=== PATIENT | female | born 1985 | race Caucasian/White ===

== ENCOUNTER → 2018-02-18 07:10 | Outpatient (CLI) | payer OTHER, MEDICAID, SELFPAY ==
[2018-02-18 10:47] LABS: Anion Gap 5 (5-15); BUN 11 mg/dL (7-18); BUN/Creat Ratio 13.7 RATIO (10-20); Calcium,Total 8.5 mg/dL (8.5-10.1); Chloride 108 mmol/L (98-107); Cholesterol 189 mg/dL (200); EST Glomerular Filtration Rate 88 mL/min (>60); Est Glom Filt Rate - Afr Amer 106 mL/min (>60); Glucose 88 mg/dL (74-106); High Density Lipoprotein 33 mg/dL; Potassium 3.5 mmol/L (3.5-5.1); Sodium Level 141 mmol/L (136-145); Triglycerides 161 mg/dL; Very Low Density Lipoprotein 32 mg/dL (5-40)
== END ==
PROVIDERS: Family Provider Family Medicine; PCP Family Medicine; Referring Provider Family Medicine; Visit Provider Family Medicine
DX: K58.9 Irritable bowel syndrome, unspecified (principal)
CPT/HCPCS: 36415; 80048; 80061

== ENCOUNTER → 2018-05-26 14:14 | Outpatient (CLI) | payer OTHER, MEDICAID, SELFPAY ==
[2018-05-26 09:16] VITALS: BMI 33.1
== END ==
PROVIDERS: Family Provider Family Medicine; PCP Family Medicine; Referring Provider Physician Assistant; Visit Provider Physician Assistant
DX: J02.9 Acute pharyngitis, unspecified (principal)
CPT/HCPCS: 87081

== ENCOUNTER → 2019-05-11 07:46 | Outpatient (CLI) | payer OTHER, MEDICAID, SELFPAY ==
[2019-04-24 13:43] VITALS: BMI 34.7
[2019-05-11 09:41] LABS: Anion Gap 4 (5-15); BUN 9 mg/dL (7-18); BUN/Creat Ratio 10.2 RATIO (10-20); Calcium,Total 8.9 mg/dL (8.5-10.1); Chloride 109 mmol/L (98-107); Cholesterol 191 mg/dL (200); Creatinine, Serum 0.88 mg/dL (0.55-1.02); EST Glomerular Filtration Rate 78 mL/min (>60); Est Glom Filt Rate - Afr Amer 94 mL/min (>60); Glucose 92 mg/dL (74-106); High Density Lipoprotein 36 mg/dL; Potassium 3.9 mmol/L (3.5-5.1); Sodium Level 141 mmol/L (136-145); Triglycerides 117 mg/dL; Very Low Density Lipoprotein 23 mg/dL (5-40)
[2019-05-11 10:13] LABS: Vitamin D,25 Hydroxy 15.5 ng/mL (29.95-100.01)
== END ==
PROVIDERS: PCP Family Medicine; Referring Provider Family Medicine; Visit Provider Family Medicine
DX: Z00.00 Encounter for general adult medical examination without abnormal findings (principal); E66.9 Obesity, unspecified
CPT/HCPCS: 36415; 80048; 80061; 82306

== ENCOUNTER → 2019-07-04 09:00 | Outpatient (CLI) | payer OTHER, SELFPAY ==
[2019-04-24 13:43] VITALS: BMI 34.7
== END ==
PROVIDERS: PCP Family Medicine; Referring Provider Nurse Practitioner Acute Care; Visit Provider Nurse Practitioner Acute Care
DX: G47.33 Obstructive sleep apnea (adult) (pediatric) (principal)
CPT/HCPCS: 98960; G0463

== ENCOUNTER → 2020-02-19 11:33 | Outpatient (CLI) | payer OTHER, SELFPAY ==
[2019-10-30 10:02] VITALS: BMI 33.3
--- NOTE | 2020-02-19 11:36 | VDLE_ITS ---
Reason For Study: Calf pain RIGHT GSV is normal. CFV is compressible, spontaneous, phasic, competent and demonstrates normal augmentation. FV is compressible, spontaneous, phasic, competent and demonstrates normal augmentation. POP V is compressible, spontaneous, phasic, competent and demonstrates normal augmentation. T/P Trunk is compressible. PTV is compressible. RT PerV is compressible. Procedure This is a venous duplex using B-mode, color flow and spectral Doppler. Exam performed in department. A preliminary report was called and/or faxed to [facility]. Interpretation Summary Deep veins of the right lower extremity are patent and compressible segmentally. There is no evidence of right lower extremity deep vein thrombosis. Valvular competence appears intact within the proximal deep venous system on the right . The right great saphenous vein appears patent and compressible segmentally. Ordering Physician: Lawson Contreras Referring Physician: Lawson Contreras Performed By: Wendy Bullock RVT
== END ==
PROVIDERS: PCP Family Medicine; Referring Provider Family Medicine; Visit Provider Family Medicine
DX: M79.661 Pain in right lower leg (principal)
CPT/HCPCS: 93971

== ENCOUNTER → 2020-09-12 11:32 | Outpatient (CLI) | payer OTHER, SELFPAY ==
[2019-10-30 10:02] VITALS: BMI 33.3
== END ==
PROVIDERS: PCP Family Medicine; Referring Provider Nurse Practitioner Acute Care; Visit Provider Nurse Practitioner Acute Care
DX: Z01.84 Encounter for antibody response examination (principal)
CPT/HCPCS: 36415; 86769

== ENCOUNTER → 2020-12-04 | Outpatient (CLI) | payer OTHER, SELFPAY ==
[2020-12-04 10:11] VITALS: BMI 33.7
[2020-12-04 16:49] LABS: Absolute Lymphocyte Count 2.32 X10^3/uL (0.83-4.51); Absolute Neutrophil Count 5.5 X10^3/uL (2.0-7.7); Basophil# 0.05 X10^3/uL; Basophil% 0.6 % (0-1); Eosinophil# 0.28 X10^3/uL; Eosinophils% 3.2 % (0-5); Hematocrit 42.9 % (37-47); Lymphocyte # 2.32 X10^3/ul (0.83-4.51); Lymphocyte % 26.6 % (19-41); Mean Corp Hgb Conc 32.6 g/dL (32-36); Mean Corpuscular Hgb 31.2 pg (27.0-32.0); Mean Corpuscular Volume 95.5 fL (81-99); Monocyte# 0.59 X10^3/uL; Monocyte% 6.8 % (0-10); NRBC Flagged by Analyzer 0 % (0-5); Neutrophil # 5.46 X10^3/uL (2.7-7.7); Neutrophil % 62.5 % (47-70); Platelet Count 335 K/mm3 (150-450); RBC Distribution Width CV 11.9 % (11.6-14.6); RBC Distribution Width SD 41.6 fl (35.1-43.9); Red Blood Count 4.49 M/mm3 (4.2-5.4); White Blood Count 8.7 K/mm3 (4.4-11.0)
[2020-12-04 17:02] LABS: ALB/GLOB Ratio 1.2 RATIO (0.9-2.4); AST(SGOT) 15 U/L (15-37); Alanine Aminotransfer ALT/SGPT 25 U/L (13-56); Alkaline Phosphatase 49 U/L (45-117); Anion Gap 5 (5-15); BUN 15 mg/dL (7-18); BUN/Creat Ratio 21.9 RATIO (10-20); Calcium,Total 8.5 mg/dL (8.5-10.1); Chloride 108 mmol/L (98-107); Cholesterol 197 mg/dL (200); Creatinine, Serum 0.68 mg/dL (0.55-1.02); EST Glomerular Filtration Rate 103 mL/min (>60); Est Glom Filt Rate - Afr Amer 125 mL/min (>60); Globulin 3.4 g/dL (2.2-4.2); Glucose 90 mg/dL (74-106); High Density Lipoprotein 33 mg/dL; Protein, Total 7.4 g/dL (6.4-8.2); Sodium Level 141 mmol/L (136-145); Triglycerides 293 mg/dL; Very Low Density Lipoprotein 59 mg/dL (5-40)
[2020-12-04 17:04] LABS: Vitamin D,25 Hydroxy 33.6 ng/mL
[2020-12-06 22:14] LABS: HPV APTIMA, High Risk Negative (Negative)
== END | disposition home or self-care (01) ==
PROVIDERS: PCP Internal Medicine; Referring Provider Nurse Practitioner Women's Health; Visit Provider Nurse Practitioner Women's Health
DX: Z12.4 Encounter for screening for malignant neoplasm of cervix (principal); E66.9 Obesity, unspecified; E55.9 Vitamin D deficiency, unspecified; R03.0 Elevated blood-pressure reading, without diagnosis of hypertension
CPT/HCPCS: 36415; 80053; 80061; 82306; 85025; 87624; 88175; G0145

== ENCOUNTER 2021-08-01 08:36 | Outpatient (CLI) | payer OTHER, SELFPAY ==
[2021-08-01 08:51] LABS: Absolute Lymphocyte Count 1.65 X10^3/uL (0.83-4.51); Basophil# 0.03 X10^3/uL; Basophil% 0.4 % (0-1); Eosinophil# 0.19 X10^3/uL; Eosinophils% 2.6 % (0-5); Hematocrit 43.1 % (37-47); Hemoglobin 14.5 g/dL (12.0-15.0); Lymphocyte # 1.65 X10^3/ul (0.83-4.51); Lymphocyte % 22.4 % (19-41); Mean Corp Hgb Conc 33.6 g/dL (32-36); Mean Corpuscular Hgb 31.6 pg (27.0-32.0); Mean Corpuscular Volume 93.9 fL (81-99); Mean Platelet Vol. 9.2 fl (6.2-12.0); Monocyte# 0.49 X10^3/uL; Monocyte% 6.6 % (0-10); NRBC Flagged by Analyzer 0 % (0-5); Neutrophil # 4.99 X10^3/uL (2.7-7.7); Neutrophil % 67.6 % (47-70); Platelet Count 319 K/mm3 (150-450); RBC Distribution Width CV 11.9 % (11.6-14.6); RBC Distribution Width SD 41.3 fl (35.1-43.9); Red Blood Count 4.59 M/mm3 (4.2-5.4); White Blood Count 7.4 K/mm3 (4.4-11.0)
[2021-08-01 08:56] LABS: Erythrocyte Sedimentation Rate 9 mm/hr (0-30)
[2021-08-01 09:36] LABS: ALB/GLOB Ratio 1.2 RATIO (0.9-2.4); AST(SGOT) 13 U/L (15-37); Alanine Aminotransfer ALT/SGPT 21 U/L (13-56); Alkaline Phosphatase 52 U/L (45-117); Anion Gap 2 (5-15); BUN 10 mg/dL (7-18); BUN/Creat Ratio 11.8 RATIO (10-20); Bilirubin, Direct 0.11 mg/dL (0.00-0.30); CRP 2.91 mg/L (0.0-3.0); Calcium,Total 8.4 mg/dL (8.5-10.1); Chloride 108 mmol/L (98-107); Creatinine, Serum 0.85 mg/dL (0.55-1.02); EST Glomerular Filtration Rate 81 mL/min (>60); Est Glom Filt Rate - Afr Amer 97 mL/min (>60); Globulin 3.3 g/dL (2.2-4.2); Glucose 109 mg/dL (74-106); Potassium 3.8 mmol/L (3.5-5.1); Protein, Total 7.3 g/dL (6.4-8.2); Sodium Level 139 mmol/L (136-145); Thyroid Stim Hormone (TSH) 1.01 uIU/mL (0.358-3.74)
[2021-08-05 12:00] LABS: Anti-Centromere B Ab <0.2 AI (0.0-0.9); Anti-Chromatin <0.2 AI (0.0-0.9); Anti-Jo <0.2 AI (0.0-0.9); Anti-Scleroderma-70 AB <0.2 AI (0.0-0.9); Endomysial Antibody IgA Negative (Negative); RNP Ab 0.5 AI (0.0-0.9); SJOGREN'S Anti-SS-A test < 0.2 AI (0.0-0.9); SJOGREN'S Anti-SS-B test < 0.2 AI (0.0-0.9); Smith Ab <0.2 AI (0.0-0.9)
[2021-08-05 13:46] LABS: Immunoglobulin A 235 mg/dL (87-352); t-Transglutaminase IgA <2 U/mL (0-3)
[2021-08-05 17:00] LABS: Anti-dsDNA Ab <1 IU/mL (0-9)
== END 2021-08-01 23:59 | disposition home or self-care (01) ==
PROVIDERS: PCP Internal Medicine; Referring Provider Nurse Practitioner Adult Health; Visit Provider Nurse Practitioner Adult Health
DX: K59.09 Other constipation (principal)
CPT/HCPCS: 36415; 80053; 82248; 82784; 83516; 84443; 85025; 85652; 86140; 86225; 86235; 86255

== ENCOUNTER 2021-08-04 08:47 | Outpatient (CLI) | payer OTHER, SELFPAY ==
--- NOTE | 2021-08-04 09:00 | RAD_ITS ---
STUDY: X-RAY - ABDOMEN/PELVIS REASON FOR EXAM: Female, 35 years old. Constipation, sitz marker study day 3 TECHNIQUE: Single AP view of the abdomen / pelvis. COMPARISON: Comparison is made with prior examination dated 01/23/2016. FINDINGS: Normal visualized lung bases. There is a moderate amount of colonic fecal material. The visualized liver, spleen and kidneys are grossly normal in size and morphology. 92 the seen in the pelvis. No Sitz markers are seen. Normal visualized osseous structures. RAD/Abdomen Single View IMPRESSION: No Sitz markers are seen. Electronically Signed: Johnson Rondon MD at 15:31 EDT ,
== END 2021-08-04 23:59 | disposition home or self-care (01) ==
LOC: RAD 08:49
PROVIDERS: PCP Internal Medicine; Referring Provider Nurse Practitioner Adult Health; Visit Provider Nurse Practitioner Adult Health
DX: K59.09 Other constipation (principal)
CPT/HCPCS: 74018

== ENCOUNTER → 2021-08-12 | Outpatient (CLI) | payer OTHER, SELFPAY ==
--- NOTE | 2021-08-12 06:54 | CT_ITS ---
STUDY: CT ABDOMEN AND PELVIS WITH CONTRAST REASON FOR EXAM: Female, 35 years old. abd pain, constipation RADIATION DOSAGE (If Supplied By Facility): CTDIvol = ( 16.1 ) mGy, DLP = ( 1226.97 ) mGycm TECHNIQUE: Transaxial images were obtained from the dome of the diaphragm to the symphysis pubis without oral contrast. Oral and amp; IV Readi-CAT and amp; 100mL Isovue-300 was administered. Sagittal and coronal images were reconstructed. Individualized dose optimization techniques were used for this CT. COMPARISON: None. FINDINGS: The visualized lung bases are unremarkable. The visualized portions of the heart are within normal limits. Normal liver. Normal gallbladder and extrahepatic biliary system. Normal spleen. Normal pancreas. Normal bilateral adrenal glands. Normal right kidney. There is a 4 mm nonobstructing left renal calculus. Normal visualized stomach. Normal small intestine. There is extensive fecal material in the colon consistent with constipation.. The appendix is visualized and appears normal. Normal abdominal aorta. Normal inferior vena cava. Normal retroperitoneum. Normal urinary bladder. Pelvis: There is an IUD in the uterus. There is a left ovarian cyst measuring 1.78 cm. Normal abdominal wall. Normal osseous structures. CT/Abdomen/Pelvis WITH Contrast IMPRESSION: There are findings consistent with constipation. There is an IUD in the uterus There is a small left ovarian cyst. There is a nonobstructing stone in the left kidney. Electronically Signed: Cory Matta MD at 7:39 EDT ,
== END | disposition home or self-care (01) ==
LOC: CT 06:53
PROVIDERS: PCP Internal Medicine; Referring Provider Nurse Practitioner Adult Health; Visit Provider Nurse Practitioner Adult Health
DX: R10.9 Unspecified abdominal pain (principal); K59.09 Other constipation
CPT/HCPCS: 74177; Q9967

== ENCOUNTER 2021-10-30 08:08 | Day surgery (SDC) | payer OTHER, SELFPAY ==
--- NOTE | 2021-10-30 | EGD_PTH ---
PATIENT: MARGE ÁLVAREZ LOC: EN U#:[id number] AGE/SX: 35/F ROOM: RE10/30/[address]: Dr. Soto Case DO : 1985 BED: DIS: 10/30/2021 SPEC #: [id number] RECD: 10/30/21 11:05 STATUS: ZAK KILO #: [id number] IRLANDA: 10/30/21 00:[address]: Soto Case DEPT: SURGICAL PATHOLOGY RECD BY: Haja Sapp ENTERED: 10/30/21 11:06 SP TYPE: EGD BIOPSY OT DR: Dr. Caroline Matamoros MD Tissues: A - Duodenum, NOS B - Gastric mucous membrane C - Esophageal mucous membrane D - Ileum, NOS Procedures: Special Stain Group II Surgery Specimen Level IV Alcian Blue/PAS (control) HEADER OPERATION: Colonoscopy, EGD [place] [place] with biopsies PRE-OP DIAGNOSIS: Chronic constipation, abdominal pain TISSUE SUBMITTED: A ? Duodenum biopsy, B ? Antrum biopsy for H. pylori and path, C ? Distal esophagus biopsy, D ? Terminal ileum biopsy MICROSCOPIC DIAGNOSIS A. Duodenum, biopsy: Fragments of duodenal mucosa, no pathologic diagnosis. B. Antrum, biopsy: Mild gastritis. See microscopic description and comment. C. Distal esophagus, biopsy: Fragments of gastric mucosa with chronic inflammation. Intestinal metaplasia (goblet cell metaplasia) not identified. See comment. D. Terminal ileum, biopsy: Fragments of small intestinal mucosa, no pathologic diagnosis. SJ:dread 10/31/2021 COMMENT B. The results of immunohistochemistry for Helicobacter pylori will be reported separately ([id number]). C. Alcian blue/PAS stain with matched control is used in the evaluation of the specimen. MICROSCOPIC DESCRIPTION Slides are reviewed. B. The specimen shows fragments of gastric mucosa with chronic inflammatory cell infiltrates in the lamina propria consisting of lymphocytes and plasma cells, consistent with mild chronic gastritis. GROSS DESCRIPTION A - Received in fixative is one container labeled with the patient's name and designated duodenum. The specimen consists of two irregular fragments of light fair soft tissue that in aggregate measure 0.8 x 0.4 x 0.1 cm. The specimen is totally submitted in one cassette. B - Received in fixative is one container labeled with the patient's name and designated antrum. The specimen consists of multiple irregular fragments of light fair soft tissue that in aggregate measure 1 x 0.4 x 0.1 cm. The specimen is totally submitted in one cassette. C - Received in fixative is one container labeled with the patient's name and designated distal esophagus biopsy. The specimen consists of two irregular fragments of light fair soft tissue that in aggregate measure 0.8 x 0.4 x 0.1 cm. The specimen is totally submitted in one cassette. D - Received in fixative is one container labeled with the patient's name and designated terminal ileum. The specimen consists of multiple irregular fragments of light fair soft tissue that in aggregate measure 1.5 x 0.5 x 0.1 cm. The specimen is totally submitted in one cassette. / SJ:rg 10/30/2021 TC:3 CPT: 65212 x4, 06200
--- NOTE | 2021-10-30 08:15 | PCM.HP.BLA ---
History and Physical Date of Admission: 10/30/21 MARGE LEIGH, is a 35 F who presents to the office today for 15 yrs of constipation, since of her second child, has BM usually once or maybe twice a week. Sometimes has to strain, but that's not really successful. Never feels like bowels fully evacuate. Sometimes gets urge to have a BM but then nothing happens. Stool almost always soft, even when constipated. Then occasionally gets periods of soft, frequent stool that passes even when she just goes to the toilet to urinate. Occas severe sharp pains in LUQ >RUQ, typically after dairy, she usually uses Lactaid. No nausea or vomiting. No hematochezia or melena. Tried and failed miralax. Hasn't used dulcolax, enema, senna. Used stool softener briefly after her son was born. Previously took amitriptyline for abd pain, maybe helped. Recently started omeprazole, not sure if it is helping, but taking it at night. No heartburn. Hard to swallow big pills or a big bite of food, this started 8-12 mos ago. Gets epigastric pain and fullness after eating, having early satiety, can have firmness of upper abd. Even gets SOB because she is so full and bloated. Mother and nephew have Crohn's disease Frustrated by weight gain in past 6-7 years Comorbidities include obesity, NORMA, RLS ROS Const Constitutional: No fatigue ENT ENT: Positive for nasal congestion Gastro GI: Positive for abdominal pain, bloating, constipation and excessive flatus; No belching, change in bowel habits, change in stool character, coffee ground emesis, cramping, diarrhea, heartburn, feeling full early, incontinent of stools, Vomiting blood/hematemesis, Blood in stool, loose stools, Black,tarry stools, nausea/dyspepsia, pain with swallowing, vomiting or other Musc Musculoskeletal: Positive for back pain, restless legs and leg pain at night; No joint pain Skin Skin: Positive for dry skin; No yellowing of the eye or itchy eyes Neuro Neurology: Positive for restless legs Psych Psychiatric: No anxiety and No depression Endo Endocrine: No fatigue Aller/Imm Allergy/Immunologic: No itchy eyes Beka/Lymp Hematologic/Lymphatic: Positive for easy bruising; No easy bleeding Exam Const General: cooperative, no acute distress, well developed and well groomed Eyes Conjunctivae: conjunctivae normal Sclera: sclerae normal Resp Effort & Inspection: normal respiratory effort GI Inspection: obesity Palpation: soft and nontender Quality Reporting Tobacco Screening ([facility] 138) Smoking Status: Former smoker Assessment and Plan Assessment and Plan (1) Chronic constipation: ?Status:?Chronic (2) Abdominal pain: ?Status:?Acute ? ? ? Orders:?Orders: ? Abdomen Single View Today K59.09 ? ? Abdomen Single View Today K59.09 ? ? Comprehensive Metabolic Profil Today K59.09 ? ? CRP Today K59.09 ? ? Liver Profile Today K59.09 ? ? Thyroid Stim Hormone (TSH) Today K59.09 ? ? CBC W/Diff, Automated Today K59.09 ? ? Erythrocyte Sed Rate Today K59.09 ? ? Celiac Disease Profile Today K59.09 ? ? Abdomen/Pelvis WITH Contrast Today K59.09, R10.9 ?Plan - Nelia Giordano PORTABLE TRACK CREW CHIEF, PORTABLE TRACK CREW CHIEF-C: 35 yr old female with chronic constipation with abd pain, epigastric pain with early satiety, possible GERD, FH Crohn's. DDx includes esophagitis, esophageal stricture, Alejandre's, gastritis, duodenitis, ulcer, gastroparesis, CIC, IBS-C, slow transit constipation vs pelvic floor. Biochemical w/u including inflammatory markers Sitz marker study EGD and colonoscopy Once results are back, will likely rx linzess or similar for IBS-C, f/u in 6 wks and then 2 wks after endoscopy I have re-examined the patient. There are no clinical changes since date of exam.
[2021-10-30 08:34] VITALS: BP 116/77; PULSE 75; RESP 16; TEMP 36.1; O2SAT 99; BMI 33.3
[2021-10-30] MEDS: Lactated Ringers 1,000 ML 15 ML IV (08:53)
[2021-10-30 08:56] LABS: Internal QC Validated? YES +Cl - CLEAR BKGD; Pregnancy, Urine Negative Negative
--- NOTE | 2021-10-30 09:15 | IMM_PTH ---
PATIENT: MARGE ÁLVAREZ LOC: EN U#:[id number] AGE/SX: 35/F ROOM: RE10/30/[address]: Dr. Soto Case DO : 1985 BED: DIS: 10/30/2021 SPEC #: [id number] RECD: 10/30/21 13:36 STATUS: ZAK REQ #: [id number] IRLANDA: 10/30/21 09:[address]: Soto Case DEPT: IMMUNOHISTOCHEMISTRY RECD BY: Carmencita Philip ENTERED: 10/30/21 13:36 SP TYPE: IMMUNO OTHR DR: Dr. Caroline Matamoros MD Tissues: B - Stomach, NOS Procedures: H Pylori (initial) PHYSICIAN & INSTITUTION [place] [id number] SPECIMEN INFORMATION: Tissue Source: B ? Antrum biopsy Clinical Info: Chronic constipation, abdominal pain Specimen Number: [id number] CPT code: 12963 METHODOLOGY: Deparaffinized sections of prefer/formalin-fixed tissue or PAP/DQ stained slides are incubated with monoclonal/polyclonal antibodies/oligonucleotide probes. Localization is made via biotin free immunoperoxidase method. Appropriate controls are performed and reacted as expected. Results on target cell population are indicated in the following table: RESULTS: ANTIBODY / CLONE RESULT Block B H Pylori (polyclonal) negative These tests were developed and their performance characteristics determined by [facility]. They may not have been cleared or approved by the U.S. Food and Drug Administration. The FDA has determined that such clearance or approval is not necessary. The above immunohistochemical/dualISH markers are ordered and reviewed by the Pathologist. INTERPRETATION: B. Antrum, biopsy: Negative for Helicobacter pylori organisms. SJ:dread 10/31/2021
[2021-10-30 09:35] VITALS: BP 105/61; BP 116/77; PULSE 94; RESP 16; TEMP 36.2; O2SAT 96
[2021-10-30 09:40] VITALS: BP 114/73; BP 116/77; PULSE 86; RESP 16; O2SAT 98
--- NOTE | 2021-10-30 09:41 | OP.EGD_ITS ---
Patient Name: Addis Moyer Procedure Date: 10/30/2021 8:50 AM Date of : 1985 Age: 35 Procedure: Upper GI endoscopy Indications: Epigastric abdominal pain Providers: Soto Case DO Referring MD: Caroline Matamoros MD Medicines: Monitored Anesthesia Care Patient Profile: This is a 35 year old female. Refer to note in patient chart for documentation of history and physical. Patient has symptoms of chronic epigastric abdominal pain. Complications: No immediate complications. Procedure: Pre-Anesthesia Assessment: - Prior to the procedure, a History and Physical was performed, and patient medications and allergies were reviewed. The patient is competent. The risks and benefits of the procedure and the sedation options and risks were discussed with the patient. All questions were answered and informed consent was obtained. Patient identification and proposed procedure were verified by the physician in the pre-procedure area. Mental Status Examination: alert and oriented. Airway Examination: normal oropharyngeal airway and neck mobility. Respiratory Examination: clear to auscultation. CV Examination: normal. Prophylactic Antibiotics: The patient does not require prophylactic antibiotics. Prior Anticoagulants: The patient has taken no previous anticoagulant or antiplatelet agents. After reviewing the risks and benefits, the patient was deemed in satisfactory condition to undergo the procedure. The anesthesia plan was to use moderate sedation / analgesia (conscious sedation). Immediately prior to administration of medications, the patient was re-assessed for adequacy to receive sedatives. The heart rate, respiratory rate, oxygen saturations, blood pressure, adequacy of pulmonary ventilation, and response to care were monitored throughout the procedure. The physical status of the patient was re-assessed after the procedure. After obtaining informed consent, the endoscope was passed under direct vision. Throughout the procedure, the patient's blood pressure, pulse, and oxygen saturations were monitored continuously. The Colonoscope was introduced through the mouth, and advanced to the second part of duodenum. The upper GI endoscopy was accomplished without difficulty. The patient tolerated the procedure well. Scope In: 9:09:36 AM Scope Out: 9:16:19 AM Total Procedure Duration Time 0 hours 6 minutes 43 seconds Findings: The Z-line was irregular and was found 36 cm from the incisors. Biopsies were taken with a cold forceps for histology. Verification of patient identification for the specimen was done. Estimated blood loss was minimal. Patchy mildly erythematous mucosa without bleeding was found in the gastric antrum. Biopsies were taken with a cold forceps for histology. Verification of patient identification for the specimen was done. Estimated blood loss was minimal. Patchy mildly erythematous mucosa without active bleeding and with no stigmata of bleeding was found in the first portion of the duodenum. Biopsies were taken with a cold forceps for histology. Verification of patient identification for the specimen was done. Estimated blood loss was minimal. Impression: - Z-line irregular, 36 cm from the incisors. Biopsied. - Erythematous mucosa in the antrum. Biopsied. - Erythematous duodenopathy. Biopsied. Recommendation: - Discharge patient to home. - Resume previous diet. - Continue present medications. - Await pathology results. Procedure Code(s): --- Professional --- 46919, Esophagogastroduodenoscopy, flexible, transoral; with biopsy, single or multiple CPT copyright 2017 [employer]. All rights reserved. The codes documented in this report are preliminary and upon radio division lieutenant review may be revised to meet current compliance requirements. Soto Case DO 10/30/2021 9:40:39 AM This report has been signed electronically. Number of Addenda: 1 Note Initiated On: 10/30/2021 8:50 AM Addendum Number: 1 Addendum Date: 01/28/2022 6:27:48 AM MAC was used as sedation for this procedure. Soto Case DO 01/28/2022 6:27:54 AM This report has been signed electronically.
--- NOTE | 2021-10-30 09:42 | OP.CCLET_ITS ---
01/28/2022 Caroline Matamoros MD [address] [place] [address] [place] [address] Re : Upper GI endoscopy procedure for Addis Moyer Dear Dr. Matamoros This procedure was performed on October. My impressions and recommendations are as follows: Impressions : - Z-line irregular, 36 cm from the incisors. Biopsied. - Erythematous mucosa in the antrum. Biopsied. - Erythematous duodenopathy. Biopsied. Recommendations : - Discharge patient to home. - Resume previous diet. - Continue present medications. - Await pathology results. My findings are described in the full procedure note, which is enclosed. If I can be of further assistance, please feel free to contact me at . Sincerely, Soto Case, 10/30/2021 9:40:39 AM This report has been signed electronically.
[2021-10-30 09:45] VITALS: BP 112/80; BP 116/77; PULSE 74; RESP 16; O2SAT 98
--- NOTE | 2021-10-30 09:48 | OP.CCLET_ITS ---
01/28/2022 Caroline Matamoros MD [address] [place] [address] [place] [address] Re : Colonoscopy procedure for Addis Moyer Dear Dr. Matamoros This procedure was performed on October. My impressions and recommendations are as follows: Impressions : - Diverticulosis in the sigmoid colon. - Congested mucosa in the terminal ileum. Biopsied. Recommendations : - Discharge patient to home. -Mild rectal prolapse - Resume previous diet. - Continue present medications. - Repeat colonoscopy in 1 year for surveillance after piecemeal polypectomy. My findings are described in the full procedure note, which is enclosed. If I can be of further assistance, please feel free to contact me at . Sincerely, Soto Case, 10/30/2021 9:47:33 AM This report has been signed electronically.
--- NOTE | 2021-10-30 09:48 | OP.COLON_ITS ---
Patient Name: Addis Moyer Procedure Date: 10/30/2021 9:16 AM Date of : 1985 Age: 35 Procedure: Colonoscopy Indications: Abdominal pain in the left lower quadrant, Periumbilical abdominal pain, Abdominal pain in the right lower quadrant, Abdominal pain Providers: Soto Case DO Referring MD: Caroline Matamoros MD Medicines: Monitored Anesthesia Care Patient Profile: This is a 35 year old female. Refer to note in patient chart for documentation of history and physical. Patient has symptoms of chronic epigastric abdominal pain. Last Colonoscopy: none. The patient's first colonoscopy is today. Complications: No immediate complications. Procedure: Pre-Anesthesia Assessment: - Prior to the procedure, a History and Physical was performed, and patient medications and allergies were reviewed. The patient is competent. The risks and benefits of the procedure and the sedation options and risks were discussed with the patient. All questions were answered and informed consent was obtained. Patient identification and proposed procedure were verified by the physician in the pre-procedure area. Mental Status Examination: alert and oriented. Airway Examination: normal oropharyngeal airway and neck mobility. Respiratory Examination: clear to auscultation. CV Examination: normal. Prophylactic Antibiotics: The patient does not require prophylactic antibiotics. Prior Anticoagulants: The patient has taken no previous anticoagulant or antiplatelet agents. After reviewing the risks and benefits, the patient was deemed in satisfactory condition to undergo the procedure. The anesthesia plan was to use moderate sedation / analgesia (conscious sedation). Immediately prior to administration of medications, the patient was re-assessed for adequacy to receive sedatives. The heart rate, respiratory rate, oxygen saturations, blood pressure, adequacy of pulmonary ventilation, and response to care were monitored throughout the procedure. The physical status of the patient was re-assessed after the procedure. After I obtained informed consent, the scope was passed under direct vision. Throughout the procedure, the patient's blood pressure, pulse, and oxygen saturations were monitored continuously. The Colonoscope was introduced through the anus and advanced to the terminal ileum. The colonoscopy was performed without difficulty. The patient tolerated the procedure well. The quality of the bowel preparation was good. Scope In: 9:18:55 AM Scope Withdrawal Time 0 hours 9 minutes 0 seconds Scope Out: 9:30:26 AM Total Procedure Duration Time 0 hours 11 minutes 31 seconds Findings: A few small-mouthed diverticula were found in the sigmoid colon. A patchy area of the terminal ileum was congested. Biopsies were taken with a cold forceps for histology. Verification of patient identification for the specimen was done. Estimated blood loss was minimal. There also with the appearance of a mild rectal prolapse. Impression: - Diverticulosis in the sigmoid colon. - Congested mucosa in the terminal ileum. Biopsied. Recommendation: - Discharge patient to home. -Mild rectal prolapse - Resume previous diet. - Continue present medications. - Repeat colonoscopy in 1 year for surveillance after piecemeal polypectomy. Procedure Code(s): --- Professional --- 25386, Colonoscopy, flexible; with biopsy, single or multiple CPT copyright 2017 [employer]. All rights reserved. The codes documented in this report are preliminary and upon lead embedded software engineer review may be revised to meet current compliance requirements. Soto Case DO 10/30/2021 9:47:33 AM This report has been signed electronically. Number of Addenda: 1 Note Initiated On: 10/30/2021 9:16 AM Addendum Number: 1 Addendum Date: 01/28/2022 6:28:05 AM MAC was used as sedation for this procedure. Soto Case DO 01/28/2022 6:28:09 AM This report has been signed electronically.
[2021-10-30 09:50] VITALS: BP 116/77; BP 97/75; PULSE 87; RESP 16; TEMP 36.3; O2SAT 99
[2021-10-30 10:17] VITALS: BP 116/77
== END 2021-10-30 10:18 | disposition home or self-care (01) ==
LOC: EN 08:08 → AC 08:09
PROVIDERS: Anesthesiology; PCP Internal Medicine; Referring Provider Internal Medicine; Visit Provider Internal Medicine Gastroenterology
PROC: 0DJD8ZZ Inspection of Lower Intestinal Tract, Via Natural or Artificial Opening Endoscopic (ICD-10-PCS; CPT 45378; principal; 2021-10-30 09:10)
DX: K29.70 Gastritis, unspecified, without bleeding (principal); K57.30 Diverticulosis of large intestine without perforation or abscess without bleeding; K63.89 Other specified diseases of intestine; K59.09 Other constipation; R10.31 Right lower quadrant pain; R10.32 Left lower quadrant pain; R10.33 Periumbilical pain; R10.13 Epigastric pain; G47.33 Obstructive sleep apnea (adult) (pediatric); G25.81 Restless legs syndrome; E66.9 Obesity, unspecified; Z68.34 Body mass index [BMI] 34.0-34.9, adult; Z79.899 Other long term (current) drug therapy; Z86.16 Personal history of COVID-19; Z87.891 Personal history of nicotine dependence; Z83.79 Family history of other diseases of the digestive system
CPT/HCPCS: 45380; 43239; 81025; 88305; 88313; 88342; J7120; J2405

== ENCOUNTER → 2024-11-03 | Outpatient (CLI) | payer BC, SELFPAY ==
[2024-11-03 17:08] LABS: AST(SGOT) 19 U/L (<=31); Alanine Aminotransfer ALT/SGPT 16 U/L (<=34); Albumin, Serum 4.4 g/dL (3.5-5.0); Alkaline Phosphatase 46 U/L (35-104); Anion Gap 11 (5-15); BUN 11 mg/dL (4-19); BUN/Creat Ratio 11.6 RATIO (10-20); Calcium,Total 9.5 mg/dL (7.6-11.0); Carbon Dioxide 25.7 mmol/L (21.0-32.0); Chloride 104 mmol/L (98-108); Cholesterol 176 mg/dL (<=200); Globulin 2.6 g/dL (2.2-4.2); Glucose 96 mg/dL (70-99); Low Density Lipoprotein Calc. 99 mg/dL; Potassium 3.9 mmol/L (3.3-5.1); Triglycerides 182 mg/dL; Very Low Density Lipoprotein 36 mg/dL (5-40); cholesterol:hdl ratio screen 4.31
[2024-11-03 17:16] LABS: Hematocrit 40.1 % (37-47); Hemoglobin 13.6 g/dL (12.0-15.0); Immature Granulocytes Count 0.030 X10^3/uL (0.0-0.0); Mean Corp Hgb Conc 33.9 g/dL (32-36); Mean Corpuscular Volume 95.2 fL (81-99); Mean Platelet Vol. 10.0 fl (6.2-12.0); NRBC Flagged by Analyzer 0 % (0-5); Platelet Count 302 K/mm3 (150-450); RBC Distribution Width CV 11.9 % (11.6-14.6); RBC Distribution Width SD 41.5 fl (35.1-43.9); Red Blood Count 4.21 M/mm3 (4.2-5.4); White Blood Count 8.8 K/mm3 (4.4-11.0)
== END | disposition home or self-care (01) ==
LOC: BIMLAB 15:20
PROVIDERS: PCP Internal Medicine; Referring Provider Internal Medicine; Visit Provider Internal Medicine
DX: Z00.00 Encounter for general adult medical examination without abnormal findings (principal)
CPT/HCPCS: 36415; 80053; 80061; 85025

== ENCOUNTER → 2024-11-24 | Outpatient (CLI) | payer BC, SELFPAY | END | disposition home or self-care (01) | PROVIDERS: PCP Internal Medicine; Referring Provider Internal Medicine; Visit Provider Internal Medicine | DX: Z12.31 Encounter for screening mammogram for malignant neoplasm of breast (principal) | CPT/HCPCS: 77063; 77067 ==

== ENCOUNTER → 2025-02-16 | Outpatient (CLI) | payer BC, SELFPAY ==
--- OUTSIDE RECORDS SUMMARY | 2025-02-16 12:25 | XMS RPT_ITS | CCD ---
Author Organization [facility] Care Team Providers Care Capsule Filler Name Role Phone Dr. Caroline Matamoros Primary Care Provider [phone] Dr. Caroline Matamoros Referring Provider [phone] Dr. Nirav Pope Attending Provider Dr. Caroline Matamoros Attending Provider [phone] Pasquale RESTREPO, ORACIO Michael Attending Provider [phone] Dr. Caroline Matamoros Primary Care Provider [phone] Dr. Caroline Matamoros Referring Provider [phone] Dr. Caroline Matamoros Attending Provider [phone] Dr. Soto Case Attending Provider [phone] Dr. Soto Case Other Provider [phone] Dr. Caroline Matamoros MD Primary Care Provider Dr. Caroline Matamoros MD Attending Provider [phone] Dr. Caroline Matamoros MD Referring Provider [phone] Shiloh Efcynthia Primary Care Unavailable Shirley Rizvi Attending Unavailable Oleghe, Efewongbe Referring Unavailable Oleghe, Efewongbe Referring Unavailable Oleghe, Efewongbe Primary Care Unavailable Oleghe, Efewongbe Attending Unavailable Oleghe, Efewongbe Referring Unavailable Oleghe, Efewongbe Primary Care Unavailable Oleghe, Efewongbe Attending Unavailable Oleghe, Efewongbe Referring Unavailable Oleghe, Efewongbe Primary Care Unavailable Caroline Matamoros Attending Unavailable Medications Current Medications Medication Drug Class(es) Dates Sig (Normalized) Sig (Original) ivermectin 10 mg/ml topical cream (3 sources) Antiparasitic, Pediculicide Start: 11-03-2024 Ivermectin 1 % cream Active 1 NMA TOPICAL daily November 03, 2024 12:00am levonorgestrel 0.874041 mg/hr intrauterine system (7 sources) Progestin, Progestin-containi ng Intrauterine Device Start: 12-04-2020 Levonorgestrel (Mirena) 20 mcg/24 hours (6 yrs) 52 mg intrauterine device Active 1 NMA INTRA-UTER ONCE December 04, 2020 12:00am as a single dose Start: 12-04-2020 Levonorgestrel (Mirena) 20 mcg/24 hours (6 yrs) 52 mg intrauterine device Active 1 INSERT INTRA-UTER ONCE December 04, 2020 10:09am as a single dose Multivitamin preparation (1 source) Start: 10-22-2021 take 1 tablet by mouth once daily Multivitamin Active 1 TABLET PO DAILY October 22, 2021 12:00am Completed/Discontinued Medications Medication Drug Class(es) Dates Sig (Normalized) Sig (Original) amitriptyline hydrochloride 50 mg oral tablet (7 sources) Tricyclic Antidepressant Start: 05-26-2018 End: 09-19-2020 Amitriptyline 50 mg tablet Discontinued PO 30 30 0 May 26, 2018 1:00am September 19, 2020 2:16pm Start: 05-26-2018 End: 09-19-2020 Amitriptyline Discontinued P O 30 30 May 26, 2018 10:18am September 19, 2020 2:16pm amoxicillin 875 mg / clavulanate 125 mg oral tablet (10 sources) Penicillin-class Antibacterial Start: 06-11-2023 End: 06-21-2023 Amoxicillin-Pot Clavulanate 875-125 mg tablet Discontinued 1 {tbl} PO Q12H 20 10 0 June 11, 2023 1:00am June 20, 2023 1:00am June 21, 2023 1:05am Acute sinusitis, unspecified Start: 02-18-2021 End: 02-28-2021 Amoxicillin-Pot Clavulanate (Augmentin) 875-125 mg tablet Discontinued 1 {tbl} PO Q12H 20 10 February 18, 2021 12:00am February 27, 2021 12:00am February 28, 2021 12:01am Acute sinusitis, unspecified azithromycin 250 mg oral tablet (10 sources) Macrolide Antimicrobial Start: 03-11-2022 End: 01-06-2023 take 2-5 tablets by mouth once daily Azithromycin 250 mg tablet Discontinued 0 PO .COMPLEX 6 March 11, 2022 1:00am January 06, 2023 3:48pm take 500 mg today (day 1), then 250 mg for 4 days (days 2-5) PO Start: 06-01-2018 End: 04-24-2019 Azithromycin 250 mg tablet D iscontinued 250 mg PO daily 12 June 01, 2018 1:00am April 24, 2019 3:13pm 2 tablets today, then 1 tablet daily on days 2 through 11 benzonatate 200 mg oral capsule (7 sources) Non-narcotic Antitussive Start: 06-01-2018 End: 04-24-2019 take 1 capsule by mouth three times daily as needed for cough Benzonatate 200 mg capsule Discontinued 200 mg PO THREE TIMES A DAY as needed for cough 20 June 01, 2018 1:00am April 24, 2019 3:16pm linaclotide 0.072 mg oral capsule (10 sources) Guanylate Cyclase-C Agonist Start: 09-17-2021 End: 03-11-2022 take 1 capsule by mouth once daily in the morning Linaclotide 72 mcg capsule Discontinued 72 ug PO EVERY MORNING 30 September 17, 2021 12:00am March 11, 2022 11:12am Start: 08-12-2021 End: 09-17-2021 take 1 capsule by mouth once daily in the morning Linaclotide 145 mcg capsule Discontinued 145 ug PO EVERY MORNING 30 August 12, 2021 12:00am September 17, 2021 5:52pm methylPREDNISolone 4 mg oral tablet (7 sources) Corticosteroid Start: 02-18-2021 End: 02-23-2021 take 1 tablet by mouth once Methylprednisolone (Medrol (Luis)) 4 mg tablets,dose pack Discontinued 4 mg PO per package directions 21 5 February 18, 2021 12:00am February 22, 2021 12:00am February 23, 2021 12:01am Multivitamin Tablet (3 sources) Start: 10-22-2021 End: 03-11-2022 Multivitamin Tablet Discontinued 1 {tbl} PO DAILY October 22, 2021 12:00am March 11, 2022 11:12am Norwich-3 Fatty Acids (Norwich 3) Capsule (4 sources) Start: 10-22-2021 End: 03-11-2022 take 1 capsule by mouth once daily Norwich-3 Fatty Acids ([place]wich 3) Capsule Discontinued 1000 mg PO DAILY October 22, 2021 12:00am March 11, 2022 11:12am Start: 10-22-2021 take 1 capsule by mouth once d aily Norwich-3 Fatty Acids ([place] 3) Capsule Active 1000 MG PO DAILY October 22, 2021 12:00am omeprazole 40 mg delayed release oral capsule (14 sources) Proton Pump Inhibitor Start: 01-22-2021 End: 09-17-2021 take 1 capsule by mouth once daily 30 minutes before breakfast Omeprazole 40 mg capsule,delayed release(DR/EC) Discontinued 40 mg PO DAILY 90 0 July 03, 2021 9:04am September 17, 2021 3:32pm Take 30 minutes before breakfast pantoprazole 40 mg delayed release oral tablet (3 sources) Proton Pump Inhibitor Start: 11-13-2021 End: 03-11-2022 Pantoprazole 40 mg tablet,delayed release (DR/EC) Discontinued 40 mg PO TWICE A DAY 120 1 November 13, 2021 12:00am March 11, 2022 11:12am take twice a day for 2 months, then take once a day in the morning for 2 months predniSONE 20 mg oral tablet (3 sources) Start: 03-11-2022 End: 01-06-2023 take 3 tablets by mouth once daily at mealtime Prednisone 20 mg tablet Discontinued 60 mg PO daily 15 0 March 11, 2022 1:00am January 06, 2023 3:48pm administer with food or milk rOPINIRole 0.5 mg oral tablet (20 sources) Nonergot Dopamine Agonist Start: 04-24-2019 End: 01-06-2023 take 1 tablet by mouth at bedtime Ropinirole 0.5 mg tablet Discontinued 0.5 mg PO AT BEDTIME 60 6 February 12, 2021 10:21am October 22, 2021 2:24pm administer 1-3 hours before bedtime sucralfate 1000 mg oral tablet (3 sources) Aluminum Complex Start: 11-13-2021 End: 03-11-2022 take 1 tablet by mouth at bedtime Sucralfate 1 gram tablet Discontinued 1 g PO before meals and at bedtime 120 0 November 13, 2021 12:00am March 11, 2022 11:12am Problems Problem Classification Problem Date Documented Da te Episodic/Chronic Abdominal pain (12 sources) Abdominal discomfort; Translations: [Unspecified abdominal pain] Episodic Contraceptive and procreative management (7 sources) Intrauterine contraceptive device in situ; Translations: [Presence of (intrauterine) contraceptive device] 01-06-2023 Episodic Comment on above: mirena insert 06/03/18 [facility] Disorders of teeth and jaw (7 sources) Loss of teeth due to extraction; Translations: [Partial loss of teeth, unspecified cause, unspecified class] 10-22-2021 Episodic Comment on above: 2002 Esophageal disorders (12 sources) Gastroesophageal reflux disease; Translations: [Gastro-esophageal reflux disease without esophagitis] Chronic Gastritis and duodenitis (3 sources) Gastritis; Translations: [Gastritis, unspecified, without bleeding] 11-13-2021 Episodic Nutritional deficiencies (7 sources) Vitamin D deficiency; Translations: [Vitamin D deficiency, unspecified] 12-04-2020 Chronic Other circulatory disease (4 sources) Elevated blood pressure; Translations: [Elevated blood-pressure reading, without diagnosis of hypertension] Episodic Other gastrointestinal disorders (6 sources) Irritable bowel syndrome characterized by constipation; Translations: [Irritable bowel syndrome with constipation] 09-17-2021 Chronic Other gastrointestinal disorders (2 sources) Irritable bowel syndrome with constipation; Translations: [Irritable bowel syndrome] Chronic Other gastrointestinal disorders (7 sources) Chronic constipation; Translations: [Other constipation] 06-11-2021 Episodic Other gastrointestinal disorders (7 sources) Other constipation; Translations: [Constipation, unspecified] Episodic Other gastrointestinal disorders (3 sources) Dysphagia; Translations: [Dysphagia, unspecified] 01-12-2024 Episodic Other hereditary and degenerative nervous system conditions (7 sources) Restless legs; Translations: [Restless legs syndrome] 12-04-2020 Chronic Other nutritional; endocrine; and metabolic disorders (7 sources) Body mass index 30+ - obesity; Translations: [Body mass index (BMI) 34.0-34.9, adult] 04-24-2019 Chronic Other nutritional; endocrine; and metabolic disorders (7 sources) Obesity; Translations: [Obesity, unspecified] 12-04-2020 Chronic Other nutritional; endocrine; and metabolic disorders (4 sources) Obesity, unspecified; Translations: [Obesity, unspecified] Chronic Other screening for suspected conditions (not mental disorders or infectious disease) (1 source) Encounter for screening mammogram for malignant neoplasm of breast; Translations: [Encounter for screening mammogram for malignant neoplasm of breast] Onset: Episodic Other upper respiratory infections (4 sources) Acute sinusitis; Translations: [Acute sinusitis, unspecified] Episodic Residual codes; unclassified (7 sources) Obstructive sleep apnea syndrome; Translations: [Obstructive sleep apnea (adult) (pediatric)] 12-04-2020 Chronic Comment on above: CPAP 7 cm water Viral infection (7 sources) Disease caused by 2019-nCoV; Translations: [COVID-19] 12-30-2021 Episodic Results Test Name Value Interpretation Reference Range Facility Breast imaging reportOrdered By: Bhavana Zepeda on 11-24-2024 Study report [facility] Imaging Services [address] [place] [address] [id number] SCRN MAMM (CAD)W/CÉSAR BILAT MR#: [id number] Acct: [id number] Name: MARGE ÁLVAREZ Rep #: [id number] : 1985 F 38 From: Laz Forte MD PCP: Dr. Caroline Matamoros MD Status: R EG CLI Study:SCRN MAMM (CAD)W/CÉSAR BILAT Date of Exa m: 11/24/24 Exam# [id number] Ordering Dr: Steven Matamoros MD EXAM: SCRN MAMM (CAD)W/CÉSAR BILAT DATE: 11/24/2024 CLINICAL HISTORY: F, Age 38 y/o , BREAST CANCER SCREENING TECHNIQUE: SCRN MAMM (CAD)W/CÉSAR BILAT COMPARISON: Baseline exam FINDINGS: TISSUE DENSITY: There are scattered areas of fibroglandular density. Bilateral Breast Mammographic Findings: No suspicious masses, calcifications or other abnormalities are identified. BI/SCRN MAMM (CAD)W/CÉSAR BILAT IMPRESSION: No mammographic evidence of malignancy in either breast OVERALL FINAL ASSESSMENT BI-RADS 1: NEGATIVE. RECOMMENDATION: Routine annual follow-up in 1 Year A letter with findings and recommendations will be mailed to the patient. Reading Location: [id number] CC: Dr. Caroline Matamoros MD ~ Group Captain: Signed [facility] SCRN MAMM (CAD)W/CÉSAR BILATo n 11-24-2024 SCRN MAMM (CAD)W/CÉSAR BILAT [facility] Imaging Services [address] [place] [address] [id number] SCRN MAMM (CAD)W/CÉSAR BILAT MR#: [id number] Acct: [id number] Name: MARGE ÁLVAREZ Rep #: [id number] : 1985 F 38 From: Bhavana Casas i, MD PCP: Dr. Caroline Matamoros MD Status: [facility] Study: SCRN MAMM (CAD)W/CÉSAR BILAT Date of Exam: 05/20 Exam# [id number] Ordering Dr: Caroline Matamoros MD EXAM: SCRN MAMM (CAD)W/CÉSAR BILAT DATE: 11/24/2024 CLINICAL HISTORY: F, Age 38 y/o , BREAST CANCER SCREENING TECHNIQUE: SCRN MAMM (CAD)W/CÉSAR BILAT COMPARISON: Baseline exam FINDINGS: TISSUE DENSITY: There are scattered areas of fibroglandular density. Bilateral Breast Mammographic Findings: No suspicious masses, calcifications or other abnormalities are identified. BI/SCRN MAMM (CAD)W/CÉSAR BILAT IMPRESSION: No mammographic evidence of malignancy in either breast OVERALL FINAL ASSESSMENT BI-RADS 1: NEGATIVE. RECOMMENDATION: Routine annual follow-up in 1 Year A letter with findings and recommendations will be mailed to the patient. Reading Location: [facility] CC: Dr. Caroline Matamoros MD Group Captain: Signed Normal [facility] Absolute lymphocyte countOrd ered By: Caroline Matamoros on 11-03-2024 Lymphocytes Auto (Unsp spec) [#/Vol] 2.05 10*3/uL 0.83-4.51 [facility] Absolute neutrophil countOrd ered By: Caroline Matamoros on 11-03-2024 Neutrophils (Bld) [#/Vol] 6.0 10*3/uL 2.0-7.7 [facility] Anion gap in Serum or Plasma Ordered By: Caroline Matamoros on 11-03-2024 Anion gap [Moles/Vol] 11 mmol/L 5-15 [facility] Automated lymphocyte count a s percentage of total leukocytesOrdered By: Caroline Matamoros on 11-03-2024 Lymphocytes/100 WBC Auto (Unsp spec) 23.4 % 19-41 [facility] BUN/creatinine ratioOrdered By: Caroline Matamoros on 11-03-2024 Urea nitrogen/Creatinine [Mass ratio] 11.6 mg/mg 10-20 [facility] Basophil percentageOrdered B y: Caroline Matamoros on 11-03-2024 Basophils/100 WBC (Bld) 0.6 % 0-1 [facility] Bilirubin, totalOrdered By: Caroline Matamoros on 11-03-2024 Bilirubin [Mass/Vol] 0.45 mg/dL 0.00-1.30 [facility] CBC W/Diff, Automatedon 10-24 Absolute Lymph 2.05 X10 3/uL Normal 0.83-4.51 [facility] Comment on above: Performed By: #### L 100.0100, L500.4050, L500.4100 #### [facility] [address] [place], [address] Absolute Neut 6.0 X10 3/uL Normal 2.0-7.7 [facility] Comment on above: Performed By: #### L 100.0100, L500.4050, L500.4100 #### [facility] [address] [place], [address] Basophils/100 WBC (Bld) 0.6 % Normal 0-1 [facility] Comment on above: Performed By: #### L 100.0100, L500.4050, L500.4100 #### [facility] [address] [place], [address] Eosinophils/100 WBC (Bld) 0.7 % Normal 0-5 [facility] Comment on above: Performed By: #### L 100.0100, L500.4050, L500.4100 #### [facility] [address] [place], [address] Erythrocyte distribution width (RBC) [Ratio] 11.9 % Normal 11.6-14.6 [facility] Comment on above: Performed By: #### L 100.0100, L500.4050, L500.4100 #### [facility] [address] [place], [address] Hematocrit (Bld) [Volume fraction] 40.1 % Normal 37-47 [facility] Comment on above: Performed By: #### L 100.0100, L500.4050, L500.4100 #### [facility] [address] [place], [address] Hemoglobin (Bld) [Mass/Vol] 13.6 g/dL Normal 12.0-15.0 [facility] Comment on above: Performed By: #### L 100.0100, L500.4050, L500.4100 #### [facility] [address] [place], [address] IG% 0.300 Normal 0.0-0.9 [facility] Comment on above: Result Comment: IG% - Immature Granulocytes (promyelocytes, myelocytes and metamyelocytes) > 1% indicates that a LEFT SHIFT is Present. Performed By: #### L 100.0100, L500.4050, L500.4100 #### [facility] [address] [place], [address] Lymphocytes/100 WBC (Bld) 23.4 % Normal 19-41 [facility] Comment on above: Performed By: #### L 100.0100, L500.4050, L500.4100 #### [facility] [address] [place], [address] MCH (RBC) [Entitic mass] 32.3 pg High 27.0-32.0 [facility] Comment on above: Performed By: #### L 100.0100, L500.4050, L500.4100 #### [facility] [address] [place], [address] MCHC (RBC) [Mass/Vol] 33.9 g/dL Normal 32-36 [facility] Comment on above: Performed By: #### L 100.0100, L500.4050, L500.4100 #### [facility] [address] [place], [address] MCV (RBC) [Entitic vol] 95.2 fL Normal 81-99 [facility] Comment on above: Performed By: #### L 100.0100, L500.4050, L500.4100 #### [facility] [address] [place], [address] Monocytes/100 WBC (Bld) 7.0 % Normal 0-10 [facility] Comment on above: Performed By: #### L 100.0100, L500.4050, L500.4100 #### [facility] [address] [place], [address] Neutrophils/100 WBC (Bld) 68.0 % Normal 47-70 [facility] Comment on above: Performed By: #### L 100.0100, L500.4050, L500.4100 #### [facility] [address] [place], [address] Nucleated RBC (Bld) [#/Vol] 0 10*3/uL Normal 0-5 [facility] Comment on above: Performed By: #### L 100.0100, L500.4050, L500.4100 #### [facility] [address] [place], [address] Platelet mean volume (Bld) [Entitic vol] 10.0 fL Normal 6.2-12.0 [facility] Comment on above: Performed By: #### L 100.0100, L500.4050, L500.4100 #### [facility] [address] [place], [address] Platelets (Bld) [#/Vol] 302 10*3/uL Normal 150-450 [facility] Comment on above: Performed By: #### L 100.0100, L500.4050, L500.4100 #### [facility] [address] [place], [address] RBC (Bld) [#/Vol] 4.21 10*6/uL Normal 4.2-5.4 [facility] Comment on above: Performed By: #### L 100.0100, L500.4050, L500.4100 #### [facility] [address] [place], [address] RDW SD 41.5 fl Normal 35.1-43.9 [facility] Comment on above: Performed By: #### L 100.0100, L500.4050, L500.4100 #### [facility] [address] [place], [address] WBC (Bld) [#/Vol] 8.8 10*3/uL Normal 4.4-11.0 [facility] Comment on above: Performed By: #### L 100.0100, L500.4050, L500.4100 #### [facility] [address] [place], [address] Calculated very low density lipoprotein (VLDL) cholesterol measurementOrdered By: Craoline Matamoros on 11-03-2024 Calculated very low density lipoprotein (VLDL) cholesterol measurement 36 mg/dL 5-40 [facility] Carbon dioxide, total [Moles /volume] in Central venous bloodOrdered By: Caroline Matamoros on 11-03-2024 CO2 [Moles/Vol] 25.7 mmol/L 21.0-32.0 [facility] Chloride assayOrdered By: Alejandro Matamoros on 11-03-2024 Chloride [Moles/Vol] 104 mmol/L 98-108 [facility] Comprehensive Metabolic Prof ilon 11-03-2024 Albumin [Mass/Vol] 4.4 g/dL Normal 3.5-5.0 [facility] Comment on above: Performed By: #### L 100.0100, L500.4050, L500.4100 #### [facility] [address] [place], [address] Albumin/Globulin [Mass ratio] 1.7 {ratio} Normal 0.9-2.4 [facility] Comment on above: Performed By: #### L 100.0100, L500.4050, L500.4100 #### [facility] [address] [place], [address] ALK PHOS 46 U/L Normal 35-104 [facility] Comment on above: Performed By: #### L 100.0100, L500.4050, L500.4100 #### [facility] [address] [place], [address] ALT [Catalytic activity/Vol] 16 U/L Normal <=34 [facility] Comment on above: Performed By: #### L 100.0100, L500.4050, L500.4100 #### [facility] [address] [place], [address] AST [Catalytic activity/Vol] 19 U/L Normal <=31 [facility] Comment on above: Performed By: #### L 100.0100, L500.4050, L500.4100 #### [facility] [address] [place], [address] Bilirubin [Mass/Vol] 0.45 mg/dL Normal 0.00-1.30 [facility] Comment on above: Performed By: #### L 100.0100, L500.4050, L500.4100 #### [facility] [address] [place], [address] BUN/CRE 11.6 RATIO Normal 10-20 [facility] Comment on above: Performed By: #### L 100.0100, L500.4050, L500.4100 #### [facility] [address] [place], [address] Calcium [Mass/Vol] 9.5 mg/dL Normal 7.6-11.0 [facility] Comment on above: Performed By: #### L 100.0100, L500.4050, L500.4100 #### [facility] [address] [place], [address] Chloride [Moles/Vol] 104 mmol/L Normal 98-108 [facility] Comment on above: Performed By: #### L 100.0100, L500.4050, L500.4100 #### [facility] [address] [place], [address] CO2 [Moles/Vol] 25.7 mmol/L Normal 21.0-32.0 [facility] Comment on above: Performed By: #### L 100.0100, L500.4050, L500.4100 #### [facility] [address] [place], [address] Creatinine [Mass/Vol] 0.98 mg/dL Normal 0.70-1.20 [facility] Comment on above: Performed By: #### L 100.0100, L500.4050, L500.4100 #### [facility] [address] [place], [address] GAP 11 Normal 5-15 [facility] Comment on above: Performed By: #### L 100.0100, L500.4050, L500.4100 #### [facility] [address] [place], [address] GFR/1.73 sq M.predicted among non-blacks MDRD (S/P/Bld) [Vol rate/Area] 76 mL/min/{1.73_m2} Normal >60 [facility] Comment on above: Result Comment: mL/m in/1.73m2 CKD-EPI Creatinine Equation (2020) Performed By: #### L 100.0100, L500.4050, L500.4100 #### [facility] [address] [place], [address] Globulin (S) [Mass/Vol] 2.6 g/dL Normal 2.2-4.2 [facility] Comment on above: Performed By: #### L 100.0100, L500.4050, L500.4100 #### [facility] [address] [place], [address] Glucose [Mass/Vol] 96 mg/dL Normal 70-99 [facility] Comment on above: Performed By: #### L 100.0100, L500.4050, L500.4100 #### [facility] [address] [place], [address] Potassium [Moles/Vol] 3.9 mmol/L Normal 3.3-5.1 [facility] Comment on above: Performed By: #### L 100.0100, L500.4050, L500.4100 #### [facility] [address] [place], [address] Sodium [Moles/Vol] 141 mmol/L Normal 133-145 [facility] Comment on above: Performed By: #### L 100.0100, L500.4050, L500.4100 #### [facility] [address] [place], [address] T PROT 7.0 g/dL Normal 5.9-8.4 [facility] Comment on above: Performed By: #### L 100.0100, L500.4050, L500.4100 #### [facility] [address] [place], [address] Urea nitrogen [Mass/Vol] 11 mg/dL Normal 4-19 [facility] Comment on above: Performed By: #### L 100.0100, L500.4050, L500.4100 #### [facility] [address] [place], [address] Eosinophil percentageOrdered By: Caroline Matamoros on 11-03-2024 Eosinophils/100 WBC (Bld) 0.7 % 0-5 [facility] Erythrocyte distribution wid th ratioOrdered By: Caroline Matamoros on 11-03-2024 Erythrocyte distribution width (RBC) [Ratio] 11.9 % 11.6-14.6 [facility] Erythrocyte distribution wid th standard deviationOrdered By: Caroline Matamoros on 11-03-2024 Erythrocyte distribution width (RBC) [Ratio] 41.5 fl 35.1-43.9 [facility] Glomerular filtration rate ( GFR) estimation/1.73 sq m using serum, plasma, or whole bOrdered By: Caroline Matamoros on 11-03-2024 GFR/1.73 sq M.predicted among non-blacks MDRD (S/P/Bld) [Vol rate/Area] 76 mL/min/{1.73_m2} >60 [facility] Comment on above: mL/min/1.73m2 CKD-EP I Creatinine Equation (2020) Hematocrit Auto (Bld) [Volum e fraction]Ordered By: Caroline Matamoros on 11-03-2024 Hematocrit (Bld) [Volume fraction] 40.1 % 37-47 [facility] Hemoglobin measurementOrdere d By: Caroline Matamoros on 11-03-2024 Hemoglobin (Bld) [Mass/Vol] 13.6 g/dL 12.0-15.0 [facility] Immature granulocytes/100 WB C Auto (Bld)Ordered By: Caroline Matamoros on 11-03-2024 Immature granulocytes/100 WBC (Bld) 0.300 % 0.0-0.9 [facility] Comment on above: IG% - Immature Granu locytes (promyelocytes, myelocytes and metamyelocytes) > 1% indicates that a LEFT SHIFT is Present. Internal Medicine Office Vis iton 11-03-2024 Internal Medicine Office Visit [place] [facility] [place], [place] [address] OFFICE VISIT Date of Service: 11/03/24 MR#: [id number] Acct: [id number] Name: MARGE LEIGH Rep #: [id number] : 1985 Provider: Dr. Caroline munoz MD Age/Sex: 38/F Location: [facility] [place] Status: Signed Intake Vital Signs 01/12/24 15:36 11/03/24 15:01 Height 5 ft 7 in 5 ft 7 in Weight: 197 lb 8 oz BMI 30.9 BP 122/70 H Blood Pressure Location Lt brachial Position Sitting Respiration 16 Pulse 76 Pulse Source Monitor Temp 97.8 F Temp Source Temporal Pulse Oximetry (%) 97 Intake Visit Reasons: YEARLY Chief Complaint: Yearly Dredge Or Barge Shore Hand Required: No Accompanied by: Self Is patient in pain?: No Allergies No Known Allergies Allergy (Verified 11/03/24 15:02) Medications ???Medication ???Instructions ???Recorded ???Confirmed ???Type levonorgestrel (Mirena) 1 insert intrauterine ONCE 2 1 11/03/24 History ivermectin 1 % topical cream 1 applic topical QDAY 11/03/2403/20 History Nurse's Note: Yearly visit [facility] Medical History (Updated 11/03/24 @ 15:[address] Caroline Matamoros MD) Preventative health care Wears contact lenses Wears glasses Kidney stone Blackout Difficulty swallowing History of IBS Former smoker CPAP (continuous positive airway pressure) dependence Sleep apnea Irritable bowel syndrome with constipation GERD (gastroesophageal reflux disease) Chronic constipation Vitamin D deficiency Obesity COVID-19 Restless legs syndrome Obstructive Sleep Apnea-Hypopnea Syndrome Surgical History [place] teeth extracted Family History Grandfather Diabetes Myocardial infarction Melanoma Cancer Heart disease Hypertension Sister Hypertension Hypercholesteremia Grandmother Osteoporosis Hypercholesteremia Mother Crohn disease Unknown Crohn disease Nephew Social History household members: children and other number of children: 2 current occupational status: employed current occupation: demand manager @ [employer] history of recent travel: Yes Smoking Status: Former smoker Tobacco: How many years used: 8 how long ago did patient quit smokin years, 2006 second hand exposure: Yes alcohol intake: current alcohol intake frequency: holidays/special occasions only substance use type: does not use what type of physical activity do you participate in: none seatbelt use: always do you feel safe at home: Yes additional social history: single HPI HPI Chief Complaint: Yearly Details: MARGE LEIGH, is a 38-year-old female presenting for a routine wellness check/ yearly visit. Last seen here 3 years ago. No significant personal or family history changes since her last visit. Had some concerns with her bowels at that time and since then, had an EGD/colonoscopy with a 1 year follow-up recommended however she is yet to get a repeat. She states that with weight loss and dietary changes her abdominal concerns have improved. No tobacco or alcohol abuse. Follows up with [employer] [facility]. Also gets routine skin checks, works in a dermatology office. Attestation: Documentation on this patient encounter was supported using ambient scribe technology/ voice AI technology. The patient consented to recording for the purpose of documenting the encounter. Provider reviewed content of the generated note prior to signature. ROS Const Constitutional: No body ache, chills, excessive sweating, fatigue, fever(s), frequent falls, headache(s), snoring, weakness, weight change, sleep problems or change in appetite Eyes Eyes: No blurry vision, change in vision, eye pain or Light sensitivity ENT ENT: No abnormal hearing, ear or mastoid pain, tinnitus, nasal congestion, headache(s), neck pain or sore throat Resp Respiratory: No cough, shortness of breath, snoring or wheezing Cardio Cardiology: No chest pain at rest, chest pain with exertion, excessive sweating, shortness of breath, lightheadedness, orthopnea or palpitations Gastro GI: No abdominal pain, change in bowel habits, constipation, cramping, diarrhea, nausea/dyspepsia or vomiting Genitourinary-Female : No burning urination, painful urination, urinary incontinence, urinary frequency, abnormal vaginal bleeding or pelvic pain Musc Musculoskeletal: No abnormal gait, joint pain, back pain, limited range of motion, neck pain, numbness or tingling Skin Skin: No dry skin, redness, lesions, itchy eyes, rash or wounds Neuro Neurology: No abnormal gait, abnormal hearing, abnormal speech, dizziness, weakness, frequent falls, headache(s), memory loss, numbness or tingling Psych Psychiatric: No anxie (more content not included)... Normal [facility] LDL calc ser/plasOrdered By: Caroline Matamoros on 11-03-2024 Cholesterol in LDL [Mass/Vol] 99 mg/dL [facility] Comment on above: Vyirtusokf=990-927 m g/dL & Higher Hxnz=022 mg/dL or greater Laboratory - Chemistry and C hemistry - challengeOrdered By: Caroline Matamoros on 11-03-2024 AST [Catalytic activity/Vol] 19 U/L <32 [facility] Lipid Profileon 11-03-2024 CHOL:HDL 4.31 Normal [facility] Comment on above: Performed By: #### L 100.0100, L500.4050, L500.4100 #### [facility] [address] [place], [place], [id number] Cholesterol [Mass/Vol] 176 mg/dL Normal <=200 [facility] Comment on above: Result Comment: Chol esterol level, Desirable <200 mg/dL Borderline high cholesterol 200-239 mg/dL High cholesterol >=240 mg/dL Recommendations of the NCEP Adult Treatment Panel for the following risk-cutoff thresholds for the [place] population. Performed By: #### L 100.0100, L500.4050, L500.4100 #### [facility] [address] [place], [address] Cholesterol in HDL [Mass/Vol] 41 mg/dL Normal [facility] Comment on above: Result Comment: Liz onal Cholesterol Education Program (NCEP) guidelines: <40 mg/dL: Low HDL-cholesterol (major risk factor for CHD) >= 60 mg/dL: High HDL-cholesterol (negative risk factor for CHD) HDL-cholesterol is affected by a number of factors, e.g. smoking, exercise, hormones, sex and age. Performed By: #### L 100.0100, L500.4050, L500.4100 #### [facility] [address] [place], [address] Cholesterol in LDL [Mass/Vol] 99 mg/dL Normal [facility] Comment on above: Result Comment: Bord eosjdn=253-516 mg/dL Higher Dade=725 mg/dL or greater Performed By: #### L 100.0100, L500.4050, L500.4100 #### [facility] [address] [place], [address] Cholesterol in VLDL [Mass/Vol] 36 mg/dL Normal 5-40 [facility] Comment on above: Performed By: #### L 100.0100, L500.4050, L500.4100 #### [facility] [address] [place], [address] Triglyceride [Mass/Vol] 182 mg/dL Normal [facility] Comment on above: Result Comment: The drugs N-Acetylcysteine and Metamizole may falsely depress this assay. Normal range: <150 mg/dL Borderline High: 150-199 mg/dL High: 200-499 mg/dL Very High: >500 mg/dL Performed By: #### L 100.0100, L500.4050, L500.4100 #### [facility] [place], [address] MCV (mean corpuscular volume ) determinationOrdered By: Caroline Matamoros on 11-03-2024 MCV (RBC) [Entitic vol] 95.2 fL 81-99 [facility] Mean corpuscular hemoglobin (MCH) determinationOrdered By: Caroline Matamoros on 11-03-2024 MCH (RBC) [Entitic mass] 32.3 pg High 27.0-32.0 [facility] Mean corpuscular hemoglobin concentration (MCHC) determinationOrdered By: Caroline Matamoros on 11-03-2024 MCHC (RBC) [Mass/Vol] 33.9 g/dL 32-36 [facility] Mean platelet volume determi nationOrdered By: Caroline Matamoros on 11-03-2024 Platelet mean volume (Bld) [Entitic vol] 10.0 fL 6.2-12.0 [facility] Monocyte percentageOrdered B y: Caroline Matamoros on 11-03-2024 Monocytes/100 WBC (Bld) 7.0 % 0-10 [facility] Neutrophil percentageOrdered By: Caroline Matamoros on 11-03-2024 Neutrophils/100 WBC (Bld) 68.0 % 47-70 [facility] Nucleated red blood cell per centageOrdered By: Caroline Matamoros on 11-03-2024 Nucleated RBC/100 WBC (Bld) [Ratio] 0 % 0-5 [facility] Platelet countOrdered By: Alejandro Matamoros on 11-03-2024 Platelets (Bld) [#/Vol] 302 10*3/uL 150-450 [facility] Potassium measurement (mass/ volume)Ordered By: Caroline Matamoros on 11-03-2024 Potassium (Unsp spec) [Mass/Vol] 3.9 mmol/L 3.3-5.1 [facility] RBC Auto (Bld) [#/Vol]Ordere d By: Caroline Matamoros on 11-03-2024 RBC (Bld) [#/Vol] 4.21 10*6/uL 4.2-5.4 [facility] Screening total cholesterol/ high density lipoprotein (HDL) cholesterol ratioOrdered By: Caroline Matamoros on 11-03-2024 Cholesterol.total/Choles terol in HDL [Mass ratio] 4.31 {ratio} [facility] Serum creatinine measurement (mass/volume)Ordered By: Caroline Matamoros on 11-03-2024 Creatinine [Mass/Vol] 0.98 mg/dL 0.70-1.20 [facility] Serum globulin measurementOr dered By: Caroline Matamoros on 11-03-2024 Globulin (S) [Mass/Vol] 2.6 g/dL 2.2-4.2 [facility] Serum glucose measurement (m ass/volume)Ordered By: Caroline Matamoros on 11-03-2024 Glucose [Mass/Vol] 96 mg/dL 70-99 [facility] Serum or plasma alanine salas otransferase (ALT) measurementOrdered By: Caroline Matamoros on 11-03-2024 ALT [Catalytic activity/Vol] 16 U/L <35 [facility] Serum or plasma albumin bernardino urement (mass/volume)Ordered By: Caroline Matamoros on 11-03-2024 Albumin [Mass/Vol] 4.4 g/dL 3.5-5.0 [facility] Serum or plasma albumin/glob ulin mass ratioOrdered By: Caroline Matamoros 11-03-2024 Albumin/Globulin [Mass ratio] 1.7 {ratio} 0.9-2.4 [facility] Serum or plasma alkaline nura sphatase measurementOrdered By: Caroline Matamoros 11-03-2024 ALP [Catalytic activity/Vol] 46 U/L 35-104 [facility] Serum or plasma calcium bernardino urement (mass/volume)Ordered By: Caroline Matamoros on 11-03-2024 Calcium [Mass/Vol] 9.5 mg/dL 7.6-11.0 [facility] Serum or plasma cholesterol in HDL measurement (mass/volume)Ordered By: Caroline Matamoros on 11-03-2024 Cholesterol in HDL [Mass/Vol] 41 mg/dL >40 [facility] Comment on above: National Cholesterol Education Program (NCEP) guidelines:<40 mg/dL: Low HDL-cholesterol (major risk factor for CHD)>= 60 mg/dL: High HDL-cholesterol (negative risk factor for CHD)HDL-cholesterol is affected by a number of factors, e.g. smoking, exercise, hormones, sex and age. Serum or plasma cholesterol measurement (mass/volume)Ordered By: Caroline Matamoros on 11-03-2024 Cholesterol [Mass/Vol] 176 mg/dL <201 [facility] Comment on above: Cholesterol level, D esirable <200 mg/dLBorderline high cholesterol 200-239 mg/dLHigh cholesterol >=240 mg/dLRecommendations of the NCEP Adult Treatment Panel for the following risk-cutoff thresholds for the [place] population. Serum or plasma urea nitroge n measurement (mass/volume)Ordered By: Caroline Matamoros on 11-03-2024 Urea nitrogen [Mass/Vol] 11 mg/dL 4-19 [facility] Sodium levelOrdered By: Glenny Matamoros on 11-03-2024 Sodium [Moles/Vol] 141 mmol/L 133-145 [facility] Total proteinOrdered By: Bebo Matamoros on 11-03-2024 Protein [Mass/Vol] 7.0 g/dL 5.9-8.4 [facility] Triglycerides measurementOrd ered By: Caroline Matamoros on 11-03-2024 Triglyceride [Mass/Vol] 182 mg/dL <199 [facility] Comment on above: The drugs N-Acetylcy steine and Metamizole may falsely depress this assay. Normal range: <150 mg/dLBorderline High: 150-199 mg/dLHigh: 200-499 mg/dLVery High: >500 mg/dL White blood cell (WBC) count Ordered By: Caroline Matamoros on 11-03-2024 WBC (Bld) [#/Vol] 8.8 10*3/uL 4.4-11.0 [facility] Laboratory - Chemistry and C hemistry - challengeon 10-30-2021 HCG ( test) Ql (U) Negative [facility] Work Phone: Comment on above: Very dilute urine sp ecimens, as indicated by a low specificgravity, may not contain manufacturers service representative levels of hCG. If is still suspected, a first morning urinespecimen should be collected 48 hours later and tested. Absolute lymphocyte counton 08-01-2021 Lymphocytes Auto (Unsp spec) [#/Vol] 1.65 10*3/uL 0.83-4.51 [facility] Work Phone: Basophil percentageon 2021 Basophil percentage < 0.2 AI 0.0-0.9 [facility] Work Phone: Basophils/100 WBC (Bld) 0.4 % 0-1 [facility] Work Phone: Bilirubin [Mass/Vol] 0.50 mg/dL 0.20-1.00 [facility] Work Phone: Comment on above: For patients on eltr ombopag therapy, use of Dimension [place] TBIL is not recommended. Chloride [Moles/Vol] 108 mmol/L 98-107 [facility] Work Phone: Eosinophils/100 WBC (Bld) 2.6 % 0-5 [facility] Work Phone: Glucose [Mass/Vol] 109 mg/dL 74-106 [facility] Work Phone: Comment on above: Fasting Glucose resu lt from 100 to 125 mg/dL suggests IMPAIRED HOMEOSTASIS per A.D.A. criteria. Neutrophils (Bld) [#/Vol] 5.0 10*3/uL 2.0-7.7 [facility] Work Phone: Neutrophils/100 WBC (Bld) 67.6 % 47-70 [facility] Work Phone: Potassium [Moles/Vol] 3.8 mmol/L 3.5-5.1 [facility] Work Phone: Protein [Mass/Vol] 7.3 g/dL 6.4-8.2 [facility] Work Phone: Sodium [Moles/Vol] 139 mmol/L 136-145 [facility] Work Phone: WBC (Bld) [#/Vol] 7.4 10*3/uL 4.4-11.0 [facility] Work Phone: Blood erythrocytes count (nu mber/volume)on 08-01-2021 RBC (Bld) [#/Vol] 4.59 10*6/uL 4.2-5.4 [facility] Work Phone: Blood hemoglobin measurement (mass/volume)on 08-01-2021 Hemoglobin (Bld) [Mass/Vol] 14.5 g/dL 12.0-15.0 [facility] Work Phone: Blood lymphocytes/100 leukoc yteson 08-01-2021 Lymphocytes/100 WBC (Bld) 22.4 % 19-41 [facility] Work Phone: Blood monocytes/100 leukocyt eson 08-01-2021 Monocytes/100 WBC (Bld) 6.6 % 0-10 [facility] Work Phone: Blood platelet mean volumeon 08-01-2021 Platelet mean volume (Bld) [Entitic vol] 9.2 fL 6.2-12.0 [facility] Work Phone: Determination of erythrocyte mean corpuscular volume (MCV)on 08-01-2021 MCV (RBC) [Entitic vol] 93.9 fL 81-99 [facility] Work Phone: Direct bilirubinon 2 Bilirubin.direct [Mass/Vol] 0.11 mg/dL 0.00-0.30 [facility] Work Phone: Erythrocyte sedimentation ra emory 08-01-2021 ESR (Bld) [Velocity] 9 mm/h 0-30 [facility] Work Phone: Hematocrit Auto (Bld) [Volum e fraction]on 08-01-2021 Hematocrit (Bld) [Volume fraction] 43.1 % 37-47 [facility] Work Phone: Laboratory - Chemistry and C hemistry - challengeon 08-01-2021 ALP [Catalytic activity/Vol] 52 U/L 45-117 [facility] Work Phone: [phone] ALT [Catalytic activity/Vol] 21 U/L 13-56 [facility] Work Phone: [phone] CO2 [Moles/Vol] 29.0 mmol/L 21.0-32.0 [facility] Work Phone: [phone] Globulin (S) [Mass/Vol] 3.3 g/dL 2.2-4.2 [facility] Work Phone: [phone] Urea nitrogen/Creatinine [Mass ratio] 11.8 mg/mg 10-20 [facility] Work Phone: Laboratory - Hematology and Cell countson 08-01-2021 Erythrocyte distribution width (RBC) [Entitic vol] 41.3 fL 35.1-43.9 [facility] Work Phone: Erythrocyte distribution width (RBC) [Ratio] 11.9 % 11.6-14.6 [facility] Work Phone: Immature granulocytes/100 WBC (Bld) 0.400 % 0.0-0.9 [facility] Work Phone: Comment on above: IG% - Immature Granu locytes (promyelocytes, myelocytes and metamyelocytes) > 1% indicates that a LEFT SHIFT is Present. MCH (RBC) [Entitic mass] 31.6 pg 27.0-32.0 [facility] Work Phone: [phone] Nucleated RBC/100 WBC (Bld) [Ratio] 0 % 0-5 [facility] Work Phone: [phone] MCHC Auto (RBC) [Mass/Vol]on 08-01-2021 MCHC (RBC) [Mass/Vol] 33.6 g/dL 32-36 [facility] Work Phone: No Panel Informationon 08-01 Centromere B Antibody <0.2 AI 0.0-0.9 [facility] Work Phone: Endomysial IgA Antibody Negative Negative [facility] Work Phone: Estimated GFR (MDRD) Amer 97 mL/min >60 [facility] Work Phone: Comment on above: GFR Calc Estimated GFR (MDRD) Non-Af Amer 81 mL/min >60 [facility] Work Phone: Comment on above: Non- GFR Calc GALLERY ASSISTANT Antibody 0.5 AI 0.0-0.9 [facility] Work Phone: Thyroid Stimulating Hormone (TSH) 1.01 uIU/mL 0.358-3.74 [facility] Work Phone: Platelets bldon 08-01-2021 Platelets (Bld) [#/Vol] 319 10*3/uL 150-450 [facility] Work Phone: Serum DNA double strand anti body assay (units/volume)on 08-01-2021 DNA double strand Ab Qn (S) [IU]/mL 0-9 [facility] Work Phone: Comment on above: Negative <5 Equivoca l 5 - 9 Positive >9 Serum Mary Ellen-1 antibody assay (u nits/volume)on 08-01-2021 Mary Ellen-1 extractable nuclear Ab Qn (S) <0.2 AI 0.0-0.9 [facility] Work Phone: Serum Scl-70 extractable nuc lear antibody assay (units/volume)on 08-01-2021 SCL-70 extractable nuclear Ab Qn (S) <0.2 AI 0.0-0.9 [facility] Work Phone: Serum Beasley extractable nucl ear antibody detectionon 08-01-2021 Beasley extractable nuclear Ab Ql (S) <0.2 AI 0.0-0.9 [facility] Work Phone: Serum or plasma C reactive p rotein measurement (mass/volume)on 08-01-2021 CRP [Mass/Vol] 2.91 mg/L 0.0-3.0 [facility] Work Phone: Comment on above: C-Reactive Protein ( CRP) provides useful information for thediagnosis, therapy and monitoring of inflammatory processesand associated diseases. For the evaluation of Relative Riskfor Cardiovascular Disease, a High Sensitivity CRP (HSCRP)should be ordered. Serum or plasma IgA measurem ent (mass/volume)on 08-01-2021 IgA [Mass/Vol] 235 mg/dL 87-352 [facility] Work Phone: Comment on above: Performed at: [address] [id number] Director: Adam Manrique PhD, Phone: [phone] Serum or plasma albumin bernardino urement (mass/volume)on 08-01-2021 Albumin [Mass/Vol] 4.0 g/dL 3.2-5.0 [facility] Work Phone: Serum or plasma albumin/glob ulin mass ratioon 08-01-2021 Albumin/Globulin [Mass ratio] 1.2 {ratio} 0.9-2.4 [facility] Work Phone: Serum or plasma calcium bernardino urement (mass/volume)on 08-01-2021 Calcium [Mass/Vol] 8.4 mg/dL 8.5-10.1 [facility] Work Phone: Serum or plasma creatinine m easurement (mass/volume)on 08-01-2021 Creatinine [Mass/Vol] 0.85 mg/dL 0.55-1.02 [facility] Work Phone: Comment on above: The validity of the calculated GFR & GFRAA in patients over 70 years has not been determined. Clinical correlation is essential. Serum or plasma urea nitroge n measurement (mass/volume)on 08-01-2021 Urea nitrogen [Mass/Vol] 10 mg/dL 7-18 [facility] Work Phone: Serum tissue transglutaminas e IgA antibody assay (units/volume)on 08-01-2021 tTG IgA Qn (S) <2 U/mL 0-3 [facility] Work Phone: Comment on above: Negative 0 - 3 Weak Positive 4 - 10 Positive >10 Tissue Transglutaminase (tTG) has been identified as the endomysial antigen. Studies have demonstr- ated that endomysial IgA antibodies have over 99% specificity for gluten sensitive enteropathy. Thin prep Papanicolaou smear with manual screeningon 08-01-2021 Thin prep Papanicolaou smear with manual screening 13 U/L 15-37 [facility] Work Phone: Thin prep Papanicolaou smear with manual screening 2 5-15 [facility] Work Phone: Laboratory - Microbiology an d Antimicrobial susceptibilityon 05-07-2021 SARS-CoV-2 (COVID-19) RNA MARY+probe Ql (Unsp spec) Detected [facility] Work Phone: Vital Signs Date Time Vital Sign Value Performing Clinician Faci lity 11-03-2024 15:01-0400 Body height 170.[address] Caroline Matamoros MD Work Phone: [facility] 11-03-2024 15:01-0400 Body mass index (BMI) [Ratio] 30.9 kg/m2 Dr. Caroline Matamoros MD Work Phone: [facility] 11-03-2024 15:01-0400 Body temperature 97.8 [degF] Dr. Caroline Matamoros MD Work Phone: [facility] 11-03-2024 15:01-0400 Body weight 89.[address] Caroline Matamoros MD Work Phone: [facility] 11-03-2024 15:01-0400 Diastolic blood pressure 70 mm[Hg] Dr. Caroline Matamoros MD Work Phone: [facility] 11-03-2024 15:01-0400 Heart rate 76 /min Dr. Caroline Matamoros MD Work Phone: [facility] 11-03-2024 15:01-0400 Respiratory rate 16 /min Dr. Caroline Matamoros MD Work Phone: [facility] 11-03-2024 15:01-0400 SaO2% (BldA) [Mass fraction] 97 % Dr. Caroline Matamoros MD Work Phone: [facility] 11-03-2024 15:01-0400 Systolic blood pressure 122 mm[Hg] Dr. Caroline Matamoros MD Work Phone: [facility] 10-30-2021 09:50-0400 Body temperature 97.3 [degF] Dr. Caroline Matamoros Work Phone: [facility] Work Phone: 10-30-2021 09:50-0400 Diastolic blood pressure 75 mm[Hg] Dr. Caroline Matamoros Work Phone: [facility] Work Phone: 10-30-2021 09:50-0400 Heart rate 87 /min Dr. Caroline Matamoros Work Phone: [facility] Work Phone: 10-30-2021 09:50-0400 Respiratory rate 16 /min Dr. Caroline Matamoros Work Phone: [facility] Work Phone: 10-30-2021 09:50-0400 SaO2% (BldA) [Mass fraction] 99 % Dr. Caroline Matamoros Work Phone: [facility] Work Phone: 10-30-2021 09:50-0400 Systolic blood pressure 97 mm[Hg] Dr. Caroline Matamoros Work Phone: [facility] Work Phone: 10-30-2021 08:34-0400 Body height 170.[address] Caroline Matamoros Work Phone: [facility] Work Phone: 10-30-2021 08:34-0400 Body mass index (BMI) [Ratio] 33.3 kg/m2 Dr. Caroline Matamoros Work Phone: [facility] Work Phone: 10-30-2021 08:34-0400 Body weight 96.[address] Caroline Matamoros Work Phone: [facility] Work Phone: 09-17-2021 15:34-0400 Body mass index (BMI) [Ratio] 34.1 kg/m2 Dr. Caroline Matamoros Work Phone: [facility] Work Phone: 09-17-2021 15:34-0400 Body temperature 98.4 [degF] Dr. Caroline Matamoros Work Phone: [facility] Work Phone: 09-17-2021 15:34-0400 Body weight 98.[address] Caroline Matamoros Work Phone: [facility] Work Phone: 09-17-2021 15:34-0400 Diastolic blood pressure 84 mm[Hg] Dr. Caroline Matamoros Work Phone: [facility] Work Phone: 09-17-2021 15:34-0400 Heart rate 75 /min Dr. Caroline Matamoros Work Phone: [facility] Work Phone: 09-17-2021 15:34-0400 Respiratory rate 14 /min Dr. Caroline Matamoros Work Phone: [facility] Work Phone: 09-17-2021 15:34-0400 SaO2% (BldA) [Mass fraction] 99 % Dr. Caroline Matamoros Work Phone: [facility] Work Phone: 09-17-2021 15:34-0400 Systolic blood pressure 116 mm[Hg] Dr. Caroline Matamoros Work Phone: [facility] Work Phone: 08-27-2021 09:26-0400 Body mass index (BMI) [Ratio] 34.2 kg/m2 Dr. Caroline Matamoros Work Phone: [facility] Work Phone: 08-27-2021 09:26-0400 Body weight 99.[address] Caroline Matamoros Work Phone: [facility] Work Phone: 08-27-2021 09:26-0400 Diastolic blood pressure 79 mm[Hg] Dr. Caroline Matamoros Work Phone: [facility] Work Phone: 08-27-2021 09:26-0400 Heart rate 65 /min Dr. Caroline Matamoros Work Phone: [facility] Work Phone: 08-27-2021 09:26-0400 SaO2% (BldA) [Mass fraction] 98 % Dr. Caroline Matamoros Work Phone: [facility] Work Phone: 08-27-2021 09:26-0400 Systolic blood pressure 119 mm[Hg] Dr. Caroline Matamoros Work Phone: [facility] Work Phone: 07-31-2021 12:56-0400 Body mass index (BMI) [Ratio] 34.4 kg/m2 Dr. Caroline Matamoros Work Phone: [facility] Work Phone: 07-31-2021 12:56-0400 Body weight 99.[address] Caroline Matamoros Work Phone: [facility] Work Phone: 07-31-2021 12:56-0400 Diastolic blood pressure 83 mm[Hg] Dr. Caroline Matamoros Work Phone: [facility] Work Phone: 07-31-2021 12:56-0400 Heart rate 82 /min Dr. Caroline Matamoros Work Phone: [facility] Work Phone: 07-31-2021 12:56-0400 SaO2% (BldA) [Mass fraction] 98 % Dr. Caroline Matamoros Work Phone: [facility] Work Phone: 07-31-2021 12:56-0400 Systolic blood pressure 128 mm[Hg] Dr. Caroline Matamoros Work Phone: [facility] Work Phone: 07-31-2021 12:56-0400 Body height 170.[address] Caroline Matamoros Work Phone: [facility] Work Phone: 07-31-2021 12:56-0400 Body mass index (BMI) [Ratio] 34.4 kg/m2 Dr. Caroline Matamoros Work Phone: [facility] Work Phone: 07-31-2021 12:56-0400 Body weight 99.[address] Caroline Matamoros Work Phone: [facility] Work Phone: 07-31-2021 12:56-0400 Diastolic blood pressure 83 mm[Hg] Dr. Caroline Matamoros Work Phone: [facility] Work Phone: 07-31-2021 12:56-0400 Heart rate 82 /min Dr. Caroline Matamoros Work Phone: [facility] Work Phone: 07-31-2021 12:56-0400 SaO2% (BldA) [Mass fraction] 98 % Dr. Caroline Matamoros Work Phone: [facility] Work Phone: 07-31-2021 12:56-0400 Systolic blood pressure 128 mm[Hg] Dr. Caroline Matamoros Work Phone: [facility] Work Phone: 06-11-2021 16:03-0500 Body mass index (BMI) [Ratio] 33.5 kg/m2 Dr. Caroline Matamoros Work Phone: [facility] Work Phone: 06-11-2021 16:03-0500 Body temperature 97.6 [degF] Dr. Caroline Matamoros Work Phone: [facility] Work Phone: 06-11-2021 16:03-0500 Body weight 97.[address] Caroline Matamoros Work Phone: [facility] Work Phone: 06-11-2021 16:03-0500 Diastolic blood pressure 84 mm[Hg] Dr. Caroline Matamoros Work Phone: [facility] Work Phone: 06-11-2021 16:03-0500 Heart rate 69 /min Dr. Caroline Matamoros Work Phone: [facility] Work Phone: 06-11-2021 16:03-0500 Respiratory rate 14 /min Dr. Caroline Matamoros Work Phone: [facility] Work Phone: 06-11-2021 16:03-0500 SaO2% (BldA) [Mass fraction] 97 % Dr. Caroline Matamoros Work Phone: [facility] Work Phone: 06-11-2021 16:03-0500 Systolic blood pressure 122 mm[Hg] Dr. Caroline Matamoros Work Phone: [facility] Work Phone: Encounters Encounter Date Encounter Type Care Provider Facility Start: 02-16-2025 [facility] Start: 11-24-2024 End: 11-24-[address] Caroline Matamoros MD Work Phone: -[facility] Start: 11-24-2024 End: 11-24-[address] Caroline Matamoros MD -[facility] Work Phone: Start: 11-24-2024 End: 11-24-2024 ambulatory Caroline Matamoros Facility:[facility] Start: 11-08-2024 Encounter for genera l adult medical examination without abnormal findings cynthia Sanchezsteven [facility] Start: 11-03-2024 End: 11-03-[address] Caroline Matamoros MD -[facility] Work Phone: Start: 11-03-2024 End: 11-03-[address] Caroline Matamoros MD [facility] Start: 11-03-2024 End: 11-03-[address] Caroline Matamoros MD Work Phone: -[facility] Start: 11-03-2024 End: 11-03-2024 [facility] Start: 10-30-2021 Non-patient / Non-visit Dr. Caroline Matamoros Work Phone: [facility] Start: 10-30-2021 End: 10-30-2021 Admission to same day surgery center Dr. Caroline Matamoros Work Phone: [facility]-Endoscopy Start: 09-17-2021 End: 09-17-[address] Caroline Matamoros Work Phone: [facility] Start: 08-27-2021 End: 08-27-[address] Caroline Matamoros Work Phone: [facility] Gastroenterology Start: 08-12-2021 End: 08-12-[address] Caroline Matamoros Work Phone: [facility]-Cat Scan, [facility] Start: 08-04-2021 End: 08-04-[address] Caroline Matamoros Work Phone: [facility]-Radiology, [facility] Start: 08-01-2021 End: 08-01-[address] Caroline Matamoros Work Phone: [facility]-Laboratory, [facility] Start: 07-31-2021 End: 07-31-[address] Caroline Matamoros Work Phone: [facility] Start: 06-11-2021 End: 06-11-[address] Caroline Matamoros Work Phone: [facility] Start: 05-07-2021 End: 05-07-[address] Caroline Matamoros Work Phone: [facility] Start: 12-04-[address] Caroline Matamoros Work Phone: [facility] Work Phone: Procedures Date Procedure Procedure Detail Performing Clinician Start: 11-24-2024 Screening mammography D brenda Matamoros MD Work Phone: Start: 10-30-[address] Som Matamoros Work Phone: Start: 08-12-2021 Computed tomography of abdomen and pelvis with contrast Dr. Caroline Matamoros Work Phone: Start: 08-04-2021 Diagnostic radiograp hy of abdomen Dr. Caroline Matamoros Work Phone: Plan of Treatment Date Care Activity Detail Author Start: 11-24-2024 MG Breast - bilateral Screening [facility] Start: 10-30-2021 Patient discharge [facility] Work Phone: Start: 06-11-2021 Patient referral [facility] Work Phone: CBC W Auto Different ial panel - Blood [facility] Comprehensive metabo lic 1999 panel - Serum or Plasma [facility] Lipid 1996 panel - S moira or Plasma [facility] MG Breast - bilateral Screening [facility] Patient referral [facility] Work Phone: XR Abdomen Single view [facility] Work Phone: Immunizations Immunization Date Immunization Notes Care Provider [facility] 02-11-2022 influenza, injectabl e, quadrivalent, preservative free Dr. Caroline Matamoros MD Work Phone: [facility] 01-21-2021 influenza, injectabl e, quadrivalent, preservative free Dr. Caroline Matamoros MD Work Phone: [facility] 01-21-2021 influenza, seasonal, injectable Dr. Caroline Matamoros Work Phone: [facility] Work Phone: 02-29-2020 influenza, injectabl e, quadrivalent, preservative free Dr. Caroline Matamoros MD Work Phone: [facility] 02-29-2020 influenza, seasonal, injectable Dr. Caroline Matamoros Work Phone: [facility] Work Phone: 02-14-2019 influenza, injectabl e, quadrivalent, preservative free Dr. Caroline Matamoros MD Work Phone: [facility] 02-14-2019 influenza, seasonal, injectable Dr. Caroline Matamoros Work Phone: [facility] Work Phone: Payers Date Payer Category Payer Self-pay [id number] 2024 Unknown [id number] Private Health Insurance [employer] CE [id number] Unknown [employer] INSURANCE [id number] Unknown S[employer] INS[employer]ANCE [id number] Unknown [id number] Unknown [id number] Unknown [id number] Social History Date Type Detail Facility Start: 07-31-2021 End: 10-22-2021 Tobacco smoking status NHIS Unknown if ever smoked [facility] Work Phone: Start: 1985 Sex Assigned At Female [facility] Start: 06-11-2023 Tobacco smoking stat us ILIS Ex-smoker (finding) [facility] Goals Date Patient Goal Desired Activity /State Mental Status Date Assessment Result Facility 10-30-2021 Cognitive function Voice/Name [facility] Work Phone: Evaluation note 11-03-2024 Note Date & Type Note Facility 11-03-2024 Evaluation note Diagnosis Onset Date Resolution Preventative health care acute November 03, 2024 2:52pm GERD (gastroesophageal reflux disease) chronic November 03, 2024 2:52pm Irritable bowel syndrome with constipation chronic November 03, 2024 2:52pm [facility] Work Phone: Chief complaint+Reason for visit Narrative Note Date & Type Note Facility Chief complaint+Reason for visit Narrative Reason for Visit Chronic constipation GERD (gastroesophageal reflux disease) Obesity Abdominal pain Chronic constipation [facility] Work Phone: Chief complaint+Reason for visit Narrative Note Date & Type Note Facility Chief complaint+Reason for visit Narrative Reason for Visit Chronic constipation GERD (gastroesophageal reflux disease) Obesity Abdominal pain Chronic constipation [facility] Work Phone: Evaluation note Note Date & Type Note Facility Evaluation note Diagnosis Onset Date Chronic constipation chronic GERD (gastroesophageal reflux disease) chronic Obesity chronic Abdominal pain acute Chronic constipation chronic [facility] Work Phone: Evaluation note Note Date & Type Note Facility Evaluation note Diagnosis Onset Date Abdominal pain acute Chronic constipation chronic Irritable bowel syndrome with constipation chronic Irritable bowel syndrome with constipation chronic Obesity chronic [facility] Work Phone: Evaluation note Note Date & Type Note Facility Evaluation note No assessment information availa [facility] [employer] Work Phone: Reason for referral (narrative) Note Date & Type Note Facility Reason for referral (narrative) No reason for referral information available [facility] Work Phone: Family History No Family History Records Found Relationship Condition Age at Onset Recorded Date/T berenice grandfather Diabetes mellitus Unknown Myocardial infarction Unknown Malignant melanoma Unknown Malignant neoplasm Unknown Cardiac disease Unknown Hypertension Unknown sister Hypertension Unknown Hypercholesterolemia Unknown grandmother Osteoporosis Unknown mother Crohn's disease Unknown Not Specified Crohn's disease Unknown Relationship Condition Age at Onset Recorded Date/T berenice grandfather Diabetes mellitus Unknown Myocardial infarction Unknown Malignant melanoma Unknown Malignant neoplasm Unknown Cardiac disease Unknown Hypertension Unknown sister Hypertension Unknown Hypercholesterolemia Unknown grandmother Osteoporosis Unknown mother Crohn's disease Unknown unrelated friend Crohn's disease Unknown Chief Complaint and Reason for Visit Chief Complaint Admit Date YEARLY November 03, 2024 2:52 pm Breast Cancer Screening November 24, 2024 11:43am Reason for Visit Admit Date Preventative health care November 03, 2024 2:52pm GERD (gastroesophageal reflux disease) J steve 2024 2:52pm Irritable bowel syndrome with constipati on November 03, 2024 2:52pm Chief Complaint CONSTIPATION ABD PAIN FU FU Reason for Visit Abdominal pain Chronic constipation Irritable bowel syndrome with constipation Irritable bowel syndrome with constipation Obesity Chief Complaint Admit Date YEARLY November 03, 2024 2:52 pm Advance Directives No Advanced Directives Records Found Advance Directive Response Recorded Date/ Time Living Will No October 22, 2021 2:30pm Power of Cloth Shrinker No October 22 2:30pm Summary Purpose Additional Source Comments Goals (unrecognized section and content) Goals may be documented in a n alternate sectionGoals may be documented in an alternate sectionGoals may be documented in an alternate sectionGoals may be documented in an alternate section Care Teams (unrecognized sec tion and content) Team Status: Active Member Role/Relationship Status Dates Dr. Lawson Contreras MD Family Provider Active Dr. Caroline Matamoros MD Primary Care Provider Active Team Status: Inactive Member Role/Relationship Status Dates Dr. Caroline Matamoros MD Primary Care Provider Active Start: November 03, 2024 End: November 03, 2024 Dr. Caroline Matamoros MD Attending Provider Active Start: November 03, 2024 End: November 03, 2024 Dr. Caroline Matamoros MD Referring Provider Active Start: November 03, 2024 End: November 03, 2024 Team Status: Active Member Role/Relationship Status Dates Dr. Caroline Matamoros MD Primary Care Provider Active Team Status: Inactive Member Role/Relationship Status Dates Dr. Caroline Matamoros MD Primary Care Provider Active Start: November 03, 2024 End: November 03, 2024 Dr. Caroline Matamoros MD Attending Provider Active Start: November 03, 2024 End: November 03, 2024 Dr. Caroline Matamoros MD Referring Provider Active Start: November 03, 2024 End: November 03, 2024 Team Status: Inactive Member Role/Relationship Status Dates Dr. Caroline Matamoros MD Primary Care Provider Active Start: November 24, 2024 End: November 24, 2024 Dr. Caroline Matamoros MD Attending Provider Active Start: November 24, 2024 End: November 24, 2024 Dr. Caroline Matamoros MD Referring Provider Active Start: November 24, 2024 End: November 24, 2024 INFORMATION SOURCE (unrecogn ized section and content) DATE CREATED AUTHOR 02/09/2025 [facility] FOR RECORDS PERTAINING TO PATIENTS WHO ARE OR HAVE BEEN ENROLLED IN A CHEMICAL DEPENDENCY/SUBSTANCEABUSE PROGRAM, SOME INFORMATION MAY BE OMITTED. This clinical summary was aggregated from multiple sources. Caution should be exercised in using it in the provision of clinical care. This summary normalizes information from multiple sources, and as a consequence, information in this document may materially change the coding, format and clinical context of patient data. In addition, data may be omitted in some cases. CLINICAL DECISIONS SHOULD BE BASED ON THE PRIMARY CLINICAL RECORDS. [employer] provides no warranty or guarantee of the accuracy or completeness of information in this document.
[2025-02-22 16:09] LABS: HPV APTIMA, High Risk Negative (Negative)
== END | disposition home or self-care (01) ==
LOC: LABSPEC 10:52
PROVIDERS: PCP Internal Medicine; Visit Provider Advanced Practice Midwife
DX: Z12.4 Encounter for screening for malignant neoplasm of cervix (principal)
CPT/HCPCS: 87624; 88175; G0145